=== PATIENT | male | born 1955 | race Caucasian/White ===

== ENCOUNTER → 2020-01-25 09:05 | Outpatient (BNVA) | payer OTHER, SELFPAY | PROVIDERS: PCP Internal Medicine; Visit Provider Internal Medicine Cardiovascular Disease | DX: Z76.89 Persons encountering health services in other specified circumstances (principal) ==

== ENCOUNTER → 2020-01-25 | Outpatient (REF) | payer OTHER, SELFPAY ==
--- NOTE | 2020-01-25 | ECG_ITS ---
Hook-up date: 2020-01-25 09:26:00 Duration: 24:34:00 Test Indications: PVC'S, SVT Medications: 66528 QRS complexes 1039 Ventricular ectopics which represent 1 % of total QRS comp. 21 Supraventricular ectopics which represent <1 % of total QRS comp. * Paced QRS complexs which represent % of total QRS comp. VENTRICULAR ECTOPY 1031 Isolated 34 Bigeminal Cycles 4 Couplets 0 Runs 0 Beats in Runs * Beats LONGEST at * BPM at :: -- * Beats FASTEST at * BPM at :: -- SUPRAVENTRICULAR ECTOPY 16 Isolated 0 Couplets 1 Runs 5 Beats in Runs 5 Beats LONGEST at 136 BPM at 18:03:53 2020-01-25 5 Beats FASTEST at 136 BPM at 18:03:53 2020-01-25 HEART RATES 46 MIN at 01:51:28 2020-01-26 67 AVG 94 MAX at 05:45:33 2020-01-26 LONGEST RR 1.3120 secs at 01:51:35 2020-01-26 S-T LEVELS Channel 1 - 128 mm at 09:26:00 2020-01-25 - 128 mm at 09:26:00 2020-01-25 Channel 2 - 128 mm at 09:26:00 2020-01-25 - 128 mm at 09:26:00 2020-01-25 Channel 3 - 128 mm at 02:84:51 -- - 128 mm at 02:84:51 Underlying rhythm is sinus; Average ventricular rate 67/min; range 46-94/min; Occasional ventricular ectopy- about 1000 over 24 Hrs (1%); Couplets and bigeminy noted but no sustained episodes; Rare supraventricular ectopy. Patient diary not available for review. Referred By: Ron Cortés Overread By: CRISTIAN ARMAS
== END ==
LOC: HO.CARD
PROVIDERS: Visit Provider Internal Medicine Cardiovascular Disease
DX: I49.3 Ventricular premature depolarization (principal); I47.1 Supraventricular tachycardia
CPT/HCPCS: 93226

== ENCOUNTER 2020-02-25 06:19 | Outpatient (REF) | payer OTHER, SELFPAY ==
[2020-02-25 07:21] LABS: MANUAL DIFF FLAG NO
[2020-02-25 07:32] LABS: Basophils Absolute Auto 0.1 X10*3/uL (0.0-0.2); Eosinophils Absolute Auto 0.2 X10*3/uL (0.0-0.4); Eosinophils Percent Auto 3.5 % (0-4); Hematocrit 46.8 % (42-52); Hemoglobin 15.5 g/dl (14.0-18.0); Imm Gran Abs Auto 0.03 X10*3/uL (0.00-0.03); Imm Gran Pct Auto 0.6 % (0.0-0.4); Lymphocytes Absolute Auto 1.7 X10*3/uL (1.2-4.9); Mean Corpuscular HGB Conc 33.1 g/dl (31.0-36.0); Mean Corpuscular Hemoglobin 32.6 pg (27.0-33.0); Mean Corpuscular Volume 98.3 fL (80-98); Monocytes Absolute Auto 0.4 X10*3/uL (0.1-1.2); Monocytes Percent Auto 8.3 % (2-11); Neutrophils Absolute Auto 2.5 X10*3/uL (2.0-8.3); Neutrophils Percent Auto 51.6 % (45-73); Platelet Count 217 X10*3/uL (160-400); Red Blood Count 4.76 X10*6/uL (4.60-5.80); Red Cell Distribution Width 12.8 % (11.0-16.0); White Blood Count 4.8 X10*3/uL (4.8-10.8)
[2020-02-25 07:50] LABS: Alanine Aminotransferase 25 U/L (0-40); Albumin Level 4.4 g/dL (3.5-5.0); Alkaline Phosphatase 48 U/L (39-117); Anion Gap 14 (12-20); Aspartate Amino Transferase 21 U/L (5-37); Bilirubin Total 0.5 mg/dL (0.0-1.0); Blood Urea Nitrogen 15 mg/dL (9-16); Calcium 9.1 mg/dL (8.4-10.2); Carbon Dioxide 27 mmol/L (22-29); Chloride 105 mmol/L (96-108); Cholesterol 202 mg/dL; Estimated Glomerular Filt Rate 59; Glucose Fasting 99 mg/dL (60-99); HDL Cholesterol 39 mg/dL; LDL Cholesterol Calculated 117 mg/dl; Potassium 4.6 mmol/l (3.3-5.1); Sodium 141 mmol/L (135-145); Total Protein 7.6 g/dL (6.5-8.0); Triglycerides 234 mg/dL
[2020-02-25 08:13] LABS: Thyroid Stimulating Hormone 3.13 mIU/mL (0.32-4.0)
[2020-02-25 08:33] LABS: T4 Thyroxine 5.8 ug/dL (4.5-12.0)
[2020-02-25 08:43] LABS: Folate > 20.0 ng/mL (> or = 4.0); Vitamin B12 759 pg/mL (200-900)
== END 2020-02-25 06:20 | disposition home or self-care (01) ==
LOC: HO.LAB 06:19
PROVIDERS: Visit Provider Internal Medicine
DX: E78.00 Pure hypercholesterolemia, unspecified (principal); I34.0 Nonrheumatic mitral (valve) insufficiency; Z00.00 Encounter for general adult medical examination without abnormal findings
CPT/HCPCS: 36415; 80053; 80061; 82607; 82746; 84436; 84443; 85025

== ENCOUNTER 2020-03-11 13:46 | Outpatient (REF) | payer OTHER, SELFPAY ==
--- NOTE | 2020-03-11 13:53 | XR_ITS ---
EXAMINATION: XR FOOT, LEFT CLINICAL INFORMATION: Left foot pain. COMPARISON: Left heel radiographs dated 08/03/2014 and the left ankle radiographs dated 07/11/2015. TECHNIQUE: AP, lateral, and oblique views of the left foot. FINDINGS: There is no acute fracture or dislocation. The tarsal bones are normally aligned. Small plantar and retrocalcaneal spurs are seen. Small calcification is seen in the region of the plantar fascia in the proximal one third. XR/XR foot LT min 3V IMPRESSION: Small degenerative calcaneal spurs have not significantly changed 2016. Mild plantar fascia calcification proximally is likely degenerative in nature, but was not seen on the 2016 study.
== END 2020-03-11 13:47 | disposition home or self-care (01) ==
LOC: HO.XRAY 13:46
PROVIDERS: PCP Internal Medicine; Visit Provider Internal Medicine
DX: M79.672 Pain in left foot (principal)
CPT/HCPCS: 73630

== ENCOUNTER 2020-06-16 07:59 | Outpatient (REF) | payer OTHER, SELFPAY ==
--- NOTE | ~2020-06-16 | MR_ITS ---
MR CERVICAL SPINE WITHOUT CONTRAST CLINICAL INFORMATION: Neuralgia and neuritis. COMPARISON: None available. TECHNIQUE: MRI of the cervical spine was obtained using routine sequences without contrast. FINDINGS: Cervical alignment is normal. The vertebral body heights are maintained. Moderate disc volume loss at C5-C6 and C6-C7. Modic type I endplate signal changes at C5-C6. There is marrow edema within the right C3 and C4 facets that is most likely degenerative or inflammatory. Craniocervical junction is unremarkable. Partially imaged posterior fossa is unremarkable. Cervical arterial flow voids are maintained. There are no significant soft tissue findings. C2-C3: Disc contour is normal. No central canal stenosis and no foraminal stenosis. C3-C4: Uncovertebral joint spurring and facet arthropathy result in moderate right and mild left foraminal stenosis. No central canal stenosis. C4-C5: Disc osteophyte mildly narrows the central canal. Uncovertebral joint hypertrophy and hypertrophic facet arthropathy result in severe left and moderate right foraminal stenosis. C5-C6: Disc osteophyte mildly narrows the central canal. Uncovertebral joint hypertrophy and hypertrophic facet arthropathy result in severe left and moderate right foraminal stenosis. C6-C7: Disc osteophyte mildly narrows the central canal. Uncovertebral joint hypertrophy and hypertrophic facet arthropathy result in severe left and moderate right foraminal stenosis. C7-T1: There is a soft left foraminal disc protrusion that results in severe left-sided foraminal stenosis and compression of the exiting left C8 nerve root. No central canal stenosis. Uncovertebral joint spurring results in mild right-sided foraminal encroachment. MR/MR cervical spine wo con IMPRESSION: - At C7-T1, there is a soft left foraminal disc protrusion that results in severe left-sided foraminal stenosis and compression of the exiting left C8 nerve root. - Additional advanced spondylitic changes throughout the cervical spine resulting in varying degrees of moderate to severe foraminal stenosis as discussed in detail above. No severe central canal stenosis within the cervical spine. - Modic type I endplate signal changes at C5-C6. There is marrow edema within the right C3 and C4 facets that is most likely degenerative or inflammatory.
== END 2020-06-16 08:00 | disposition home or self-care (01) ==
LOC: HO.MRI 07:59
PROVIDERS: Visit Provider Internal Medicine
DX: M79.2 Neuralgia and neuritis, unspecified (principal)
CPT/HCPCS: 72141

== ENCOUNTER → 2020-07-11 11:21 | Outpatient (BNVA) | payer OTHER, SELFPAY | PROVIDERS: PCP Internal Medicine; Visit Provider Internal Medicine Cardiovascular Disease ==

== ENCOUNTER 2020-08-01 06:15 | Day surgery (SDC) | payer OTHER, SELFPAY ==
[2020-07-27 10:56] VITALS: BMI 28.2
--- NOTE | 2020-07-28 08:15 | MHC.SHP ---
Pre-Procedural Eval Section A The patient is an INPATIENT: No The History & Physical has been completed within 30 days and I have reviewed it.: Yes Section B Chief Complaint: Cataract Left Eye Allergies: Allergies Allergy/AdvReac Type Severity Reaction Status Date / Time No Known Allergies Allergy Verified 07/27/20 10:56 [No Known Allergies*] Plan Diagnosis/Plan: Unchanged I have reviewed the history and physical and performed a pertinent physical examination on my patient. No changes have occurred unless specified.
--- NOTE | 2020-07-29 09:04 | P.CONAN_ITS ---
Documented by User: Zunilda Arteaga 07/29/20 09:07 HPI - Anesthesia Eval Consult details Narrative: 65yo M for Left Cataract Extraction IOL Insertion No prev cataract on record Daily ETOH PMFSH Active Problems Active Problems: All Active Problems (Updated 07/27/20 @ 11:02 by Nandini Jameson) Annual physical exam (Acute) Foot pain, left (Acute) Radicular pain in left arm (Acute) Ulnar neuropathy at elbow of left upper extremity (Acute) PVCs (premature ventricular contractions) (Acute) Cataract extraction status, unspecified eye (Acute) Preoperative clearance (Acute) Mitral valve prolapse (Acute) Vitamin D deficiency (Acute) Hypercholesterolemia (Acute) Past Medical History Medical History Arthritis Back pain Cataract Diverticulosis Hemorrhoids Hypercholesterolemia Lumbar disc 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 Mitral valve prolapse PVCs (premature ventricular contractions) Ulnar neuropathy Vitamin D deficiency Family History Family History Father Hypertension Abdominal aneurysm Mother Lymphoma Maternal Aunt Lymphoma Brother CAD (coronary artery disease) Myocardial infarction Family/Other Hypercholesterolemia History of high blood pressure CAD (coronary artery disease) Surgical History Surgical History History of inguinal hernia repair History of vasectomy Hx of colonoscopy Social History Social History Are you a primary critical care registered nurse to a significant other at home: No Do you presently have visiting nurse or other home services: No Alcohol intake: current Alcohol intake frequency: 0-2 drinks per day Smoking Status: Former smoker Years Smoked: stopped 1995 Smoking Quit Date: 1995 Patient Interested in Nicotine Replacement: No Patient Given Instructions on How to Stop Smoking: No Second Hand Smoke Exposure: No Use of substances other than those prescribed or required for medical reasons: No Have you been hit, kicked, punched, or otherwise hurt by someone within the past year? If so, by whom?: No Advance Directives: No Advance Directives Information Provided: No Advance Directives on File: No Recently lost weight without trying: No Meds Allergies Allergy/AdvReac Type Severity Reaction Status Date / Time No Known Allergies Allergy Verified 07/27/20 10:56 [No Known Allergies*] Home Medications Medication Instructions Recorded Confirmed Last Taken Type cholecalciferol (vitamin D3) 25 25 mcg PO DAILY 03/07/20 07/27/20 Unknown History mcg (1,000 unit) capsule cyanocobalamin (vitamin B-12) 1,000 mcg PO DAILY 03/07/20 07/27/20 Unknown History 1,000 mcg capsule diphenhydramine HCl 25 mg capsule 25 mg PO BEDTIME 03/07/20 07/27/20 Unknown History folic acid 800 mcg tablet 0.8 mg PO DAILY 03/07/20 07/27/20 Unknown History Exam Exam Date and Time: July 29, 2020903 Height,Weight and Vital Signs: Height 6 ft 2 in Weight 99.79 kg Assessment and Plan Assessment Anesthesia Assessment: Chart Reviewed Documented by User: Linda Weber 08/01/20 07:12 [facility] Past Medical History Medical History Arthritis Back pain Cataract Diverticulosis Hemorrhoids Hypercholesterolemia Lumbar disc 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 Mitral valve prolapse PVCs (premature ventricular contractions) Ulnar neuropathy Vitamin D deficiency Family History Family History Father Hypertension Abdominal aneurysm Mother Lymphoma Maternal Aunt Lymphoma Brother CAD (coronary artery disease) Myocardial infarction Family/Other Hypercholesterolemia History of high blood pressure CAD (coronary artery disease) Family history of problems with anesthesia: No Surgical History Surgical History History of inguinal hernia repair History of vasectomy Hx of colonoscopy History of Problems with Anesthesia: No Social History Social History Are you a primary critical care registered nurse to a significant other at home: No Do you presently have visiting nurse or other home services: No Alcohol intake: current Alcohol intake frequency: 0-2 drinks per day Smoking Status: Former smoker Years Smoked: stopped 1995 Smoking Quit Date: 1995 Patient Interested in Nicotine Replacement: No Patient Given Instructions on How to Stop Smoking: No Second Hand Smoke Exposure: No Use of substances other than those prescribed or required for medical reasons: No Have you been hit, kicked, punched, or otherwise hurt by someone within the past year? If so, by whom?: No Advance Directives: No Advance Directives Information Provided: No Advance Directives on File: No Recently lost weight without trying: No Meds Allergies Allergy/AdvReac Type Severity Reaction Status Date / Time No Known Allergies Allergy Verified 07/27/20 10:56 [No Known Allergies*] Home Medications Medication Instructions Recorded Confirmed Last Taken Type cholecalciferol (vitamin D3) 25 25 mcg PO DAILY 03/07/20 07/27/20 Unknown History mcg (1,000 unit) capsule cyanocobalamin (vitamin B-12) 1,000 mcg PO DAILY 03/07/20 07/27/20 Unknown History 1,000 mcg capsule diphenhydramine HCl 25 mg capsule 25 mg PO BEDTIME 03/07/20 07/27/20 Unknown History folic acid 800 mcg tablet 0.8 mg PO DAILY 03/07/20 07/27/20 Unknown History Exam Height,Weight and Vital Signs: Vital Signs Temp Pulse Resp BP Pulse Ox 08/01/20 06:34 96.6 F L 70 16 132/84 99 Airway Mallampati Class: III TM Dist: >3cm Neck ROM: Full Loose/Missing/Broken Teeth: No Heart: RRR Lungs: CTAB Assessment and Plan Assessment Anesthesia Assessment: Anesthesia Plan Discussed and Chart Reviewed Final Anesthetic Review NPO: Yes ASA Class: III Final Preanesthetic Review: No Changes in Pt Med Stat, Meds/Allgs Chart Reviewed, Consent Obtained/Reviewed and Anes Risks/Benef Reviewed Patient Risk: Intermediate Procedure Risk: Low Assessment/Block/Sedation in SS: Assess/Block/Sedation-SS Anesthetic Plan Anesthetic Plan: MAC:
[2020-08-01 06:34] VITALS: BP 132/84; PULSE 70; RESP 16; TEMP 35.9; O2SAT 99
--- NOTE | 2020-08-01 07:57 | HO.PNOPHT ---
Ophthalmology Procedure Procedure Date of Service: 08/01/20 Ophthalmology Viscoelastic: Healon Duet Dual Pack Pro Ophthalmology Lenses: TECNIS [id number] (20.5) Procedure Notes: PREOPERATIVE DIAGNOSIS: Decreased visual acuity left eye secondary to cataract POSTOPERATIVE DIAGNOSIS: Same PROCEDURE: Left cataract extraction with intraocular lens insertion SURGEON: Toribio Doss M.D. ANESTHESIA: Topical/MAC ESTIMATED BLOOD LOSS: None COMPLICATIONS: None After obtaining informed consent, the patient was brought to the operation room suite and placed in the supine position. After adequate sedation per anesthesia, topical drops of Tetracaine were given to the left eye. The eye was then prepped and draped in the usual sterile fashion. The operating room microscope was then positioned over the operative eye and a lid speculum placed. A paracentesis was created. Viscoelastic was then instilled into the anterior chamber. A three plane incision was then created temporally, utilizing a 2.85 mm keratome. Capsulotomy forceps were then utilized to create a circular tear capsulotomy. Hydrodissection and hydrodelineation were carried out until adequate mobilization of the nucleus occurred. Phacoemulsification was then utilized to remove the dense central nucleus followed by removal of the cortical material utilizing the automated aspiration irrigation unit. Viscoat elastic was instilled into the posterior capsular bag followed by placement of a posterior chamber intraocular lens without difficulty. The residual Viscoat elastic was then removed utilizing the automated IA machine. The wound was check and found to be watertight. The patient tolerated the procedure well and the lid speculum was removed. Intracameral injection of Vigamox 0.1 mL followed by a subtenon injection of Kenalog-40 0.2 mL were administered. The patient will be seen in the a.m.
[2020-08-01 08:16] VITALS: BP 122/69; PULSE 77; RESP 15; TEMP 36.7; O2SAT 96
== END 2020-08-01 08:45 | disposition home or self-care (01) ==
PROVIDERS: PCP Internal Medicine; Visit Provider Ophthalmology
PROC: (CPT 66985; principal; 2020-08-01 08:00)
DX: H25.12 Age-related nuclear cataract, left eye (principal)
CPT/HCPCS: 66984; J2250; J3300; V2632

== ENCOUNTER → 2020-08-19 08:27 | Outpatient (REF) | payer OTHER, SELFPAY ==
--- NOTE | 2020-08-19 08:31 | CA_ITS ---
Transthoracic Echocardiogram Patient (Last, First, Middle): French Sanabria M Gender: Male Date of : 1955 Age: 65 Procedure Date: 08/19/2020 Procedure Type: Transthoracic Echocardiogram Location: OP Height: 185.42 cm Weight: 99.79 kg BSA: 2.24 m2 Heart Rate: bpm BP: 128 / 62 mmHg Contact Center Analyst: Delfino MD: Ron Cortés MD [place]: Ron Cortés MD Symptoms: I34.1 - Nonrheumatic mitral (valve) prolapse Study Quality: Fair ECG Rhythm: Sinus Conclusions: - 1. Normal LV systolic and diastolic function 2. 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 Normal RV systolic pressure 4. No pericardial effusion Findings Left Ventricle Normal left ventricular size, thickness, and systolic function. The visually estimated ejection fraction is between 55-60%. Diastolic function is normal for age. Right Ventricle Normal right ventricular cavity size and systolic function. Atria The left atrium is likely dilated. There is no evidence of interatrial shunt. The right atrium is normal in size. Aortic Valve Normal aortic valve structure and function. There is no aortic valve stenosis. There is no aortic valve regurgitation. Mitral Valve The mitral valve appears myxomatous. There is mild anterior and moderate posterior mitral leaflet thickening. There is mild posterior mitral leaflet prolapse. There is mild mitral valve regurgitation. The mitral regurgitation jet is directed anteriorly. There is no mitral valve stenosis. Pulmonic Valve The pulmonic valve was not well visualized. Tricuspid Valve Likely normal tricuspid valve structure and function. There is trace tricuspid valve regurgitation. The right ventricular systolic pressure is normal. The right ventricular systolic pressure is 32 mmHg. Normal right atrial pressure. There is no evidence of pulmonary hypertension. Great Vessels All visible segments of the aorta are normal in size. The pulmonary artery was not well visualized. Venous The inferior vena cava is normal in size and collapses greater than 50% with inspiration. Pericardium/Pleural There is no evidence of pericardial effusion. Prior Study Comparison Changes noted compared to prior study dated: 07/24/2019. Mitral regurgitation appears to be mild Measurements 2D Linear Measurements RVIDd: 3.29 RVIDd Index: 1.47 IVSd: 0.97 0.6-0.9/0.6-1.0 cm LVIDd: 4.83 3.9-5.3/4.2-5.9 cm LVIDd Index: 2.16 2.4-3.2/2.2-3.1 cm/m2 LVIDs: 3.32 2.0-3.6 cm LVPWd: 1.14 0.7-1.1 cm Ao Root: 3.40 2.1-3.5 cm LA Diam: 3.90 2.7-3.8/3.0-4.0 cm LAIDs Index: 1.74 1.5-2.3 cm/m2 LV Mass: 230.29 67-162/88-224 g LV Mass Index: 102.81 43-95/49-115 g/m2 LVOT Diam: 2.50 3.0+(-)1.3 cm 2D Systolic Function EF 4C: 52.90 >55% EF 2C: 59.70 >55% EF BiP: 57.50 >55% Mitral Valve MV Pk E: 0.79 MV PK A: 0.66 MV Decel Time: 216.00 E/A: 1.20 E'Lateral: 6.85 E'Medial: 6.31 E/E' Med: 12.50 E/E' Lat: 11.50 MR Vol - PW Dopp: 15.15 MR VTI: 1.01 MR ERO: 15.00 MR Alias Horace: 0.34 MR RAD: 0.50 Aortic Valve AoV Pk Horace: 1.05 AoV Mn Horace: 0.81 AoV VTI: 0.21 AoV Pk Grad: 4.00 Aov Mn Grad: 3.00 LUI Cont.VTI: 2.84 LVOT LVOT Pk Horace: 0.72 LVOT Mn Horace: 0.45 LVOT VTI: 0.12 LVOT Pk Grad: 2.00 LVOT Mn Grad: 1.00 LVOT Diam: 2.50 LVOT Area: 4.91 Diastolic Function MV Pk E: 0.79 MV Pk A: 0.66 E/A: 1.20 E'Medial: 6.31 E/E' Med: 12.50 E' Laterial: 6.85 E/E' Lat: 11.50 Tricuspid Valve TR Pk Horace: 2.43 TR Pk Grad: 24.00 RA Press: 8.00 RVSP: 32.00 Great Vessels Aorta Ao Root-2D: 3.40 2.0-3.7 cm Ao Asc: 3.50 2.1-3.4 cm Ao Arch: 2.90 Updated in Other Vendor System with Status of Final Ron Cortés MD electronically signed on 08/19/2020 2:48:20 PM with status of Final
--- NOTE | 2020-08-19 08:45 | ECG_ITS ---
Hook-up date: 2020-08-19 09:38:00 Duration: 47:59:00 Test Indications: PVC'S Medications: 991200 QRS complexes 5328 Ventricular ectopics which represent 5 % of total QRS comp. 12 Supraventricular ectopics which represent <1 % of total QRS comp. * Paced QRS complexs which represent % of total QRS comp. VENTRICULAR ECTOPY 5328 Isolated 80 Bigeminal Cycles 0 Couplets 0 Runs 0 Beats in Runs * Beats LONGEST at * BPM at :: -- * Beats FASTEST at * BPM at :: -- SUPRAVENTRICULAR ECTOPY 7 Isolated 1 Couplets 1 Runs 3 Beats in Runs 3 Beats LONGEST at 123 BPM at 22:59:04 2020-08-19 3 Beats FASTEST at 123 BPM at 22:59:04 2020-08-19 HEART RATES 48 MIN at 02:50:37 2020-08-20 72 AVG 103 MAX at 16:09:58 2020-08-19 LONGEST RR 1.0800 secs at 23:48:10 2020-08-19 S-T LEVELS Channel 1 - 128 mm at 09:38:00 2020-08-19 - 128 mm at 09:38:00 2020-08-19 Channel 2 - 128 mm at 09:38:00 2020-08-19 - 128 mm at 09:38:00 2020-08-19 Channel 3 - 128 mm at 02:85:71 -- - 128 mm at 02:85:71 Basic rhythm Normal sinus rhythm No long pause or profound bradycardia Frequent Premature ventricular complexes , 5% of total beats, unifocal Patient did not report any symptoms of palpitations Referred By: Ron Cortés Overread By: RON CORTÉS MD
== END ==
LOC: HO.CARD 08:27
PROVIDERS: Visit Provider Internal Medicine Cardiovascular Disease
DX: I49.3 Ventricular premature depolarization (principal); I34.1 Nonrheumatic mitral (valve) prolapse
CPT/HCPCS: 93225; 93226; 93306

== ENCOUNTER 2021-03-20 07:52 | Outpatient (REF) | payer BC, SELFPAY ==
[2021-03-20 11:36] LABS: MANUAL DIFF FLAG NO
[2021-03-20 11:51] LABS: Basophils Percent Auto 0.7 % (0-2); Eosinophils Absolute Auto 0.2 X10*3/uL (0.0-0.4); Eosinophils Percent Auto 2.8 % (0-4); Hematocrit 45.8 % (42.0-52.0); Hemoglobin 15.3 g/dl (14.0-18.0); Imm Gran Abs Auto 0.01 X10*3/uL (0.00-0.03); Imm Gran Pct Auto 0.2 % (0.0-0.4); Lymphocytes Absolute Auto 2.3 X10*3/uL (1.2-4.9); Lymphocytes Percent Auto 41.4 % (20-40); Mean Corpuscular HGB Conc 33.4 g/dl (31.0-36.0); Mean Corpuscular Hemoglobin 32.6 pg (27.0-33.0); Mean Corpuscular Volume 97.7 fL (80.0-98.0); Mean Platelet Volume 10.6 fL (9.4-12.4); Monocytes Absolute Auto 0.5 X10*3/uL (0.1-1.2); Monocytes Percent Auto 8.6 % (2-11); Neutrophils Absolute Auto 2.5 x10*3/uL (2.0-8.3); Neutrophils Percent Auto 46.3 % (45-73); Platelet Count 222 X10*3/uL (160-400); Red Blood Count 4.69 X10*6/uL (4.60-5.80); Red Cell Distribution Width 12.9 % (11.0-16.0); White Blood Count 5.4 X10*3/uL (4.8-10.8)
[2021-03-20 12:03] LABS: Alanine Aminotransferase 26 U/L (0-40); Albumin Level 4.4 g/dL (3.5-5.0); Alkaline Phosphatase 51 U/L (39-117); Anion Gap 13 (12-20); Aspartate Amino Transferase 22 U/L (5-37); Bilirubin Total 0.6 mg/dL (0.0-1.0); Blood Urea Nitrogen 15 mg/dL (9-16); Calcium 9.7 mg/dL (8.4-10.2); Carbon Dioxide 27 mmol/L (22-29); Chloride 105 mmol/L (96-108); Cholesterol 187 mg/dL; Estimated Glomerular Filt Rate > 60; Glucose Random 105 mg/dL (60-115); HDL Cholesterol 35 mg/dL; LDL Cholesterol Calculated 111 mg/dl; Potassium 4.8 mmol/L (3.3-5.1); Sodium 140 mmol/L (135-145); Total Protein 7.7 g/dL (6.5-8.0); Triglycerides 206 mg/dL
[2021-03-20 12:30] LABS: Free T4 (Free Thyroxine) 0.95 ng/dL (0.71-1.85); Prostate Specific Antigen Scr 0.85 ng/mL (<0.05-4.0); Thyroid Stimulating Hormone 2.61 uIU/mL (0.32-4.0)
[2021-03-20 13:06] LABS: Folate > 20.0 ng/mL (> or = 4.0); Vitamin B12 555 pg/mL (200-900)
== END 2021-03-20 07:53 | disposition home or self-care (01) ==
LOC: HO.WFDLDS 07:52
PROVIDERS: Visit Provider Internal Medicine
DX: Z12.5 Encounter for screening for malignant neoplasm of prostate (principal); E78.00 Pure hypercholesterolemia, unspecified
CPT/HCPCS: 36415; 80053; 80061; 82607; 82746; 84153; 84439; 84443; 85025

== ENCOUNTER → 2021-07-11 10:51 | Outpatient (BNVA) | payer BC, SELFPAY | PROVIDERS: PCP Internal Medicine; Referring Provider Internal Medicine; Visit Provider Internal Medicine Cardiovascular Disease | DX: I49.3 Ventricular premature depolarization (principal); I34.1 Nonrheumatic mitral (valve) prolapse | CPT/HCPCS: 93005 ==

== ENCOUNTER 2021-07-31 06:42 | Day surgery (SDC) | payer BC, SELFPAY ==
[2021-07-24 09:29] VITALS: BMI 29.0
--- NOTE | 2021-07-27 11:36 | MHC.SHP ---
Pre-Procedural Eval Section A Date of Service: 07/27/21 The patient is an INPATIENT: No Changes since office visit: No Cold of Flu in the past 2 weeks, No New Medical Problems, No Changes in Medication and No Patient answered all questions The History & Physical has been completed within 30 days and I have reviewed it.: Yes Section B Chief Complaint: cataract Allergies: Allergies Allergy/AdvReac Type Severity Reaction Status Date / Time No Known Allergies Allergy Verified 07/18/21 10:07 [No Known Allergies*] Plan Diagnosis/Plan: Unchanged I have reviewed the history and physical and performed a pertinent physical examination on my patient. No changes have occurred unless specified.
--- NOTE | 2021-07-27 15:08 | P.CONAN_ITS ---
Documented by User: Zunilda Arteaga NP 07/27/21 15:09 HPI - Anesthesia Eval Consult details Narrative: 66yo M for Right Cataract Extraction IOL Insertion PCP cleared Left eye 07/2020 with TIVA: Midaz 2 PMFSH Active Problems Active Problems: All Active Problems (Updated 07/24/21 @ 09:32 by Myriam Gupta RN) Annual physical exam (Acute) Foot pain, left (Acute) Radicular pain in left arm (Acute) Ulnar neuropathy at elbow of left upper extremity (Acute) PVCs (premature ventricular contractions) (Acute) Preoperative clearance (Acute) Otitis media of left ear with spontaneous rupture of tympanic membrane (Acute) Annual physical exam (Acute) Orthostatic dizziness (Acute) Motion sickness (Acute) Cataract (Acute) Mitral valve prolapse (Acute) Vitamin D deficiency (Acute) Hypercholesterolemia (Acute) Past Medical History Medical History (Updated 07/24/21 @ 09:32 by Myriam Gupta RN) Arthritis Back pain Cataract COVID-19 vaccine series completed Diverticulosis Hemorrhoids Hypercholesterolemia Lumbar disc 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 Mitral valve prolapse PVCs (premature ventricular contractions) Ulnar neuropathy Vitamin D deficiency Family History Family History Father Hypertension Abdominal aneurysm Mother Lymphoma Maternal Aunt Lymphoma Brother CAD (coronary artery disease) Myocardial infarction Family/Other Hypercholesterolemia History of high blood pressure CAD (coronary artery disease) Family history of problems with anesthesia: No Surgical History Surgical History (Updated 07/24/21 @ 09:22 by Myriam Gupta RN) Cataract extraction status, unspecified eye History of inguinal hernia repair History of vasectomy Hx of colonoscopy History of Problems with Anesthesia: No Social History Social History Housing: House Are you a primary pediatric care coordinator to a significant other at home: No Do you presently have visiting nurse or other home services: No Alcohol intake: current Alcohol intake frequency: 0-2 drinks per day Patient Tobacco Use Status: Former Tobacco user Quit Date: 1995 Tobacco use type: Cigarette Years Smoked: stopped 1995 e-Cigarette/Vaping Use: Never Used Second Hand Smoke Exposure: No Use of substances other than those prescribed or required for medical reasons: No Are you DNR?: No Advance Directives: No Advance Directives Information Provided: Yes Advance Directives on File: No Recently lost weight without trying: No Eating poorly because of decreased appetite: No Nutrition Risks: No Nutritional Risk service: No Current occupational status: retired Cognitive needs: No Hearing needs: No Vision needs: No Meds Allergies Allergy/AdvReac Type Severity Reaction Status Date / Time No Known Allergies Allergy Verified 07/18/21 10:07 [No Known Allergies*] Home Medications Medication Instructions Recorded Confirmed Last Taken Type cholecalciferol (vitamin D3) 25 25 mcg PO DAILY 03/07/20 07/24/21 Unknown History mcg (1,000 unit) capsule cyanocobalamin (vitamin B-12) 1,000 mcg PO DAILY 03/07/20 07/24/21 Unknown History 1,000 mcg capsule diphenhydramine HCl 25 mg capsule 25 mg PO BEDTIME 03/07/20 07/24/21 Unknown History (NightTime Sleep Aid (diphenhydramine)) folic acid 800 mcg tablet 0.8 mg PO DAILY 03/07/20 07/24/21 Unknown History aspirin 81 mg tablet,delayed 81 mg PO DAILY 03/09/21 07/24/21 Unknown History release (Adult Low Dose Aspirin) Exam Exam Date and Time: July 27, 2021 1508 Height,Weight and Vital Signs: Height 6 ft 2 in Weight 102.512 kg Narrative Narrative: ECHO 07/2020 Conclusions: - 1. Normal LV systolic and diastolic function ? 2. 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 3. Normal RV systolic pressure ? 4. No pericardial effusion ? 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 Mitral valve prolapse PVCs (premature ventricular contractions) Ulnar neuropathy Vitamin D deficiency Family History Family History Father Hypertension Abdominal aneurysm Mother Lymphoma Maternal Aunt Lymphoma Brother CAD (coronary artery disease) Myocardial infarction Family/Other Hypercholesterolemia History of high blood pressure CAD (coronary artery disease) Surgical History Surgical History (Updated 07/24/21 @ 09:22 by Myriam Gupta RN) Cataract extraction status, unspecified eye History of inguinal hernia repair History of vasectomy Hx of colonoscopy Social History Social History Housing: House Are you a primary pediatric care coordinator to a significant other at home: No Do you presently have visiting nurse or other home services: No Alcohol intake: current Alcohol intake frequency: 0-2 drinks per day Patient Tobacco Use Status: Former Tobacco user Quit Date: 1995 Tobacco use type: Cigarette Years Smoked: stopped 1995 e-Cigarette/Vaping Use: Never Used Second Hand Smoke Exposure: No Use of substances other than those prescribed or required for medical reasons: No Are you DNR?: No Advance Directives: No Advance Directives Information Provided: Yes Advance Directives on File: No Recently lost weight without trying: No Eating poorly because of decreased appetite: No Nutrition Risks: No Nutritional Risk service: No Current occupational status: retired Cognitive needs: No Hearing needs: No Vision needs: No Meds Allergies Allergy/AdvReac Type Severity Reaction Status Date / Time No Known Allergies Allergy Verified 07/18/21 10:07 [No Known Allergies*] Home Medications Medication Instructions Recorded Confirmed Last Taken Type cholecalciferol (vitamin D3) 25 25 mcg PO DAILY 03/07/20 07/24/21 Unknown History mcg (1,000 unit) capsule cyanocobalamin (vitamin B-12) 1,000 mcg PO DAILY 03/07/20 07/24/21 Unknown History 1,000 mcg capsule diphenhydramine HCl 25 mg capsule 25 mg PO BEDTIME 11/16/20 04/04/22 Unknown History (NightTime Sleep Aid (diphenhydramine)) folic acid 800 mcg tablet 0.8 mg PO DAILY 03/07/20 07/24/21 Unknown History aspirin 81 mg tablet,delayed 81 mg PO DAILY 03/09/21 07/24/21 Unknown History release (Adult Low Dose Aspirin) Exam Airway Mallampati Class: III TM Dist: >3cm Neck ROM: Full Loose/Missing/Broken Teeth: Yes (chipprd front teeth upper and lower) Heart: rrr+[id number] Lungs: cta b/l Assessment and Plan Assessment Anesthesia Assessment: Anesthesia Plan Discussed Final Anesthetic Review NPO: Yes ASA Class: III Final Preanesthetic Review: Meds/Allgs Chart Reviewed, Consent Obtained/Reviewed and Anes Risks/Benef Reviewed Patient Risk: Intermediate Procedure Risk: Low Assessment/Block/Sedation in SS: Assess/Block/Sedation-SS Anesthetic Plan Anesthetic Plan: MAC: and Agree w/ Assess. and Plan Disposition: Standard PACU
[2021-07-31 06:58] VITALS: BP 129/83; PULSE 82; RESP 16; TEMP 36.2; O2SAT 99
[2021-07-31] MEDS: Tetracaine HCl/PF 0.5% Oph Sol 4 ML DROPS 1 DROP EYE-RIGHT (06:59)
[2021-07-31] MEDS: Tropicamide 1 % Ophth Sol 3 ML BTL 1 DROP EYE-RIGHT ×3 (07:04→07:17)
[2021-07-31] MEDS: Lactated Ringers 500 ML 50 ML IV (07:05)
[2021-07-31] MEDS: Phenylephrine HCL 2.5% Oph SoL 2 ML BOTTLE 1 DROP EYE-RIGHT ×3 (07:07→07:19)
--- NOTE | 2021-07-31 08:13 | HO.PNOPHT ---
Ophthalmology Procedure Procedure Date of Service: 07/31/21 Ophthalmology Viscoelastic: Healguillaume Duet Dual Pack Pro Ophthalmology Lenses: TECNIS [id number] (21.5) Procedure Notes: PREOPERATIVE DIAGNOSIS: Decreased visual acuity right eye secondary to cataract POSTOPERATIVE DIAGNOSIS: Same PROCEDURE: Right cataract extraction with intraocular lens insertion SURGEON: Toribio Doss M.D. ANESTHESIA: Topical/MAC ESTIMATED BLOOD LOSS: None COMPLICATIONS: None After obtaining informed consent, the patient was brought to the operating room suite and placed in the supine position. After adequate sedation per anesthesia, topical drops of Tetracaine were given to the right eye. The eye was then prepped and draped in the usual sterile fashion. The operating room microscope was then positioned over the operative eye and a lid speculum placed. A paracentesis was created. Viscoelastic was then instilled into the anterior chamber. A three plane incision was then created temporally, utilizing a 2.85 mm keratome. Capsulotomy forceps were then utilized to create a circular tear capsulotomy. Hydrodissection and hydrodelineation were carried out until adequate mobilization of the nucleus occurred. Phacoemulsification was then utilized to remove the dense central nucleus followed by removal of the cortical material utilizing the automated aspiration irrigation unit. Viscoelastic was instilled into the posterior capsular bag followed by placement of a posterior chamber intraocular lens without difficulty. The residual Viscoelastic was then removed utilizing the automated IA machine. The wound was checked and found to be watertight. The patient tolerated the procedure well and the lid speculum was removed. Intracameral injection of Vigamox 0.1 mL followed by a subtenon injection of Kenalog-40 0.2 mL were administered. The patient will be seen in the a.m.
[2021-07-31 08:36] VITALS: BP 125/78; PULSE 77; RESP 17; TEMP 36.4; O2SAT 99
== END 2021-07-31 08:47 | disposition home or self-care (01) ==
PROVIDERS: PCP Internal Medicine; Visit Provider Ophthalmology
PROC: (CPT 66985; principal; 2021-07-31 08:20)
DX: H25.11 Age-related nuclear cataract, right eye (principal); I34.0 Nonrheumatic mitral (valve) insufficiency; I34.1 Nonrheumatic mitral (valve) prolapse; I49.3 Ventricular premature depolarization; E78.00 Pure hypercholesterolemia, unspecified; Z79.82 Long term (current) use of aspirin; Z79.899 Other long term (current) drug therapy
CPT/HCPCS: 66984; J2250; J3010; J3300; V2632

== ENCOUNTER 2022-04-10 13:45 | Outpatient (REF) | payer MEDICARE, BC, SELFPAY | END 2022-04-10 13:46 | disposition home or self-care (01) | LOC: HO.RESP 13:45 | PROVIDERS: PCP Internal Medicine; Visit Provider Internal Medicine | DX: R06.02 Shortness of breath (principal) | CPT/HCPCS: 94060; 94727; 94729 ==

== ENCOUNTER 2022-04-12 10:07 | Outpatient (REF) | payer MEDICARE, BC, SELFPAY ==
--- NOTE | ~2022-04-12 | XR_ITS ---
EXAMINATION: XR CHEST CLINICAL INFORMATION: Shortness of breath COMPARISON: None TECHNIQUE: 2 views of the chest were obtained. FINDINGS: The cardiac and mediastinal contours are unremarkable. There is a 1 cm density seen on the lateral view projecting over the posterior inferior T7 vertebral body. This may be related to overlapping bone/osteophyte. The lungs are otherwise clear. There is no pleural effusion or pneumothorax. There are degenerative changes of the spine. XR/XR chest 2V IMPRESSION: 1 cm density seen on the lateral view projecting over the T7 vertebral body, question related to bony osteophyte. Otherwise unremarkable exam.
== END 2022-04-12 10:08 | disposition home or self-care (01) ==
LOC: HO.XRAY 10:07
PROVIDERS: PCP Internal Medicine; Visit Provider Internal Medicine
DX: R06.02 Shortness of breath (principal)
CPT/HCPCS: 71046

== ENCOUNTER → 2022-05-15 07:53 | Outpatient (REF) | payer MEDICARE, BC, SELFPAY ==
--- NOTE | 2022-05-15 08:00 | CA_ITS ---
Transthoracic Echocardiogram Patient (Last, First, Middle): French Sanabria M Gender: Male Date of : 1955 Age: 67 Procedure Date: 05/15/2022 Procedure Type: Transthoracic Echocardiogram Location: OP Height: 185.42 cm Weight: 103.42 kg BSA: 2.28 m2 Heart Rate: bpm BP: 122 / 75 mmHg Marketing Production Coordinator: BEULAH Referring MD: Ron Cortés MD Symptoms: I34.1 - Nonrheumatic mitral (valve) prolapse Study Quality: Fair ECG Rhythm: Sinus Conclusions: - The left ventricular systolic function is normal. The visually estimated ejection fraction is between 55-60%. - Mitral valve not well visualized but possible mild posterior leaflet prolapse. There is mild mitral valve regurgitation. Findings Left Ventricle Normal left ventricular cavity size. The left ventricular systolic function is normal. The visually estimated ejection fraction is between 55-60%. There is no evidence of regional wall motion abnormalities. There is mild global hypokinesis. There is mild septal asymmetric hypertrophy. LV peak GLS -14% (diminished). Right Ventricle Normal right ventricular cavity size and systolic function. Atria Both atria are normal in size. Aortic Valve There is a normal trileaflet aortic valve. There is no aortic valve stenosis. There is no aortic valve regurgitation. Mitral Valve There is mild mitral valve regurgitation. There is no mitral valve stenosis. Mitral valve not well visualized but possible mild posterior leaflet prolapse. Pulmonic Valve The pulmonic valve is likely normal. Tricuspid Valve There is trace tricuspid valve regurgitation. There is no evidence of pulmonary hypertension. Great Vessels The asc aorta is normal in size. Venous The inferior vena cava was not well visualized. The inferior vena cava is normal in size. Pericardium/Pleural There is no evidence of pericardial effusion. Prior Study Comparison No significant change compared to prior study dated: 08/19/2020. Measurements 2D Linear Measurements IVSd: 1.05 0.6-0.9/0.6-1.0 cm LVIDd: 4.72 3.9-5.3/4.2-5.9 cm LVIDd Index: 2.07 2.4-3.2/2.2-3.1 cm/m2 LVIDs: 2.84 2.0-3.6 cm LVPWd: 0.94 0.7-1.1 cm LA Diam: 3.20 2.7-3.8/3.0-4.0 cm LAIDs Index: 1.40 1.5-2.3 cm/m2 LV Mass: 204.13 67-162/88-224 g LV Mass Index: 89.53 43-95/49-115 g/m2 LVOT Diam: 2.30 3.0+(-)1.3 cm 2D Systolic Function EF 4C: 58.50 >55% EF 2C: 64.10 >55% EF BiP: 61.30 >55% Mitral Valve MV Pk E: 0.60 MV PK A: 0.70 MV Decel Time: 250.00 E/A: 0.90 E'Lateral: 6.09 E'Medial: 5.87 E/E' Med: 10.30 E/E' Lat: 9.90 PHT: 73.00 MVA PHT: 3.01 Decel [place]: 2.42 Aortic Valve AoV Pk Horace: 1.18 AoV Mn Horace: 0.78 AoV VTI: 0.24 AoV Pk Grad: 6.00 Aov Mn Grad: 3.00 LUI Cont.VTI: 3.31 LVOT LVOT Pk Horace: 1.05 LVOT Mn Horace: 0.61 LVOT VTI: 0.19 LVOT Pk Grad: 4.00 LVOT Mn Grad: 2.00 LVOT Diam: 2.30 LVOT Area: 4.15 Diastolic Function MV Pk E: 0.60 MV Pk A: 0.70 E/A: 0.90 E'Medial: 5.87 E/E' Med: 10.30 E' Laterial: 6.09 E/E' Lat: 9.90 Right Ventricle TAPSE (mm): 22.40 TVS' Horace: 11.70 Tricuspid Valve TR Pk Horace: 1.69 TR Pk Grad: 11.00 Great Vessels Aorta Sinus of Valsalva: 3.98 2.0-3.[address] [place]: 3.24 1.7-3.4 cm Ao Asc: 3.50 2.1-3.4 cm Updated in Other Vendor System with Status of Final Eugenio Olivarez MD electronically signed on 05/15/2022 12:44:38 PM with status of Final
== END ==
LOC: HO.CARD 07:53
PROVIDERS: Visit Provider Internal Medicine Cardiovascular Disease
DX: I34.1 Nonrheumatic mitral (valve) prolapse (principal)
CPT/HCPCS: 93306; 93356

== ENCOUNTER 2022-06-07 08:10 | Outpatient (REF) | payer MEDICARE, BC, SELFPAY ==
[2022-06-07 10:57] LABS: MANUAL DIFF FLAG NO
[2022-06-07 11:03] LABS: Basophils Percent Auto 0.9 % (0-2); Eosinophils Absolute Auto 0.2 X10*3/uL (0.0-0.4); Eosinophils Percent Auto 3.8 % (0-4); Hemoglobin 15.5 g/dl (14.0-18.0); Imm Gran Abs Auto 0.01 X10*3/uL (0.00-0.03); Imm Gran Pct Auto 0.2 % (0.0-0.4); Lymphocytes Absolute Auto 1.6 X10*3/uL (1.2-4.9); Lymphocytes Percent Auto 36.9 % (20-40); Mean Corpuscular HGB Conc 33.7 g/dl (31.0-36.0); Mean Corpuscular Volume 98.1 fL (80.0-98.0); Monocytes Absolute Auto 0.4 X10*3/uL (0.1-1.2); Monocytes Percent Auto 10.1 % (2-11); Neutrophils Percent Auto 48.1 % (45-73); Platelet Count 205 X10*3/uL (160-400); Red Blood Count 4.69 X10*6/uL (4.60-5.80); Red Cell Distribution Width 13.2 % (11.0-16.0); White Blood Count 4.3 X10*3/uL (4.8-10.8)
[2022-06-07 11:38] LABS: Alanine Aminotransferase 28 U/L (0-40); Albumin Level 4.3 g/dL (3.5-5.0); Alkaline Phosphatase 51 U/L (39-117); Anion Gap 13 (12-20); Aspartate Amino Transferase 21 U/L (5-37); Bilirubin Total 0.6 mg/dL (0.0-1.0); Blood Urea Nitrogen 14 mg/dL (9-16); Calcium 9.7 mg/dL (8.4-10.2); Carbon Dioxide 25 mmol/L (22-29); Chloride 107 mmol/L (96-108); Cholesterol 210 mg/dL; Estimated Glomerular Filt Rate > 60; Glucose Random 99 mg/dL (60-115); HDL Cholesterol 40 mg/dL; LDL Cholesterol Calculated 132 mg/dl; Potassium 4.4 mmol/L (3.3-5.1); Sodium 141 mmol/L (135-145); Total Protein 7.4 g/dL (6.5-8.0); Triglycerides 194 mg/dL
[2022-06-07 11:45] LABS: Estimated Average Glucose 105 mg/dL; Hemoglobin A1c % 5.3 %
[2022-06-07 12:11] LABS: Folate 18.9 ng/mL (> or = 4.0); Free T4 (Free Thyroxine) 0.84 ng/dL (0.71-1.85); Thyroid Stimulating Hormone 2.53 uIU/mL (0.32-4.0); Vitamin B12 750 pg/mL (200-900)
== END 2022-06-07 08:11 | disposition home or self-care (01) ==
LOC: HO.WFDLDS 08:10
PROVIDERS: Visit Provider Internal Medicine
DX: E78.00 Pure hypercholesterolemia, unspecified (principal); Z12.5 Encounter for screening for malignant neoplasm of prostate
CPT/HCPCS: 36415; 80053; 80061; 82607; 82746; 83036; 84153; 84439; 84443; 85025

== ENCOUNTER → 2022-07-16 10:47 | Outpatient (BNVA) | payer MEDICARE, BC, SELFPAY | PROVIDERS: PCP Internal Medicine; Visit Provider Internal Medicine Cardiovascular Disease | DX: I34.1 Nonrheumatic mitral (valve) prolapse (principal); I49.3 Ventricular premature depolarization; R06.02 Shortness of breath | CPT/HCPCS: 93005; 99212 ==

== ENCOUNTER 2022-07-17 10:21 | Outpatient (REF) | payer MEDICARE, SELFPAY ==
--- NOTE | ~2022-07-17 | XR_ITS ---
EXAMINATION: XR HAND, RIGHT CLINICAL INFORMATION: Pain COMPARISON: None available. TECHNIQUE: PA, lateral, and oblique views of the right hand. FINDINGS: There is mild reduction of PIP and DIP joint space with periarticular spurring PIP joint first digit and DIP joint fourth and fifth digit. No visible acute fracture or dislocation seen. The soft tissues are normal. XR/XR hand RT 2V IMPRESSION: No acute fracture or dislocation of right hand. Mild degenerative arthritic changes of PIP and DIP joints.
== END 2022-07-17 10:22 | disposition home or self-care (01) ==
LOC: HO.XRAY 10:21
PROVIDERS: PCP Internal Medicine; Visit Provider Nurse Practitioner Family
DX: M79.644 Pain in right finger(s) (principal)
CPT/HCPCS: 73120

== ENCOUNTER → 2022-10-18 09:00 | Outpatient (REF) | payer MEDICARE, SELFPAY ==
--- NOTE | 2022-10-18 09:03 | CA_ITS ---
Acquisition Time: 2022-10-18 09:20:58 Total Exercise Time: 00:04:35 Test Indications: SOB Medications: Protocol: BERNA Max HR: 121 BPM 78% of Pred: 154 BPM Max BP: 186/048 mmHG Max Work Load: 6.5 METS Exercise stress test exercise 4 min 35 sec of Bruice protocol achieving 77% MPHR with moderate to severe SOB, no chest discomfort, with isolated PVCs, PACs, and ventricular cuplets, with normotensive response to exercise, without EKG changes. Test reviewed with Dr. Villaseñor. Referred By: Ron Cortés Overread By: KAPIL CONCEPCION
== END ==
LOC: HO.CARD 09:00
PROVIDERS: Visit Provider Internal Medicine Cardiovascular Disease
DX: R06.02 Shortness of breath (principal)
CPT/HCPCS: 93017

== ENCOUNTER → 2022-11-23 07:48 | Outpatient (REF) | payer MEDICARE, SELFPAY ==
--- NOTE | ~2022-11-23 | NM_ITS ---
Myocardial perfusion study Indication: Shortness of breath to evaluate for myocardial ischemia Technique: The patient was brought in for a Lexiscan perfusion study on 11/23/2022. Patient performed low-level exercise and was injected 0.4 mg of Lexiscan intravenously. Within a minute of injection, 35 mCi of sestamibi was given intravenously. Images were obtained using the SPECT gamma camera interlaced with the gating device. Images were obtained in supine position. Resting perfusion study was performed on 11/26/2022. Patient was administered 35 mCi of sestamibi intravenously at rest. Images were then obtained in supine position. -Images obtained with and without CT attenuation. Total DLP 60 mGy-cm. Images were processed with the software and compared side to side in short axis, horizontal long axis and vertical long axis views. Findings: The stress perfusion study showed both non attenuated as well as attenuated corrected images show some thinning at the distal lateral wall of the LV myocardium. Non attenuated images show moderately reduced uptake in the basal inferior wall of the LV myocardium is well.. The gated study shows normal LV systolic function with calculated LVEF of 60%. LV cavity is normal size. The gated study shows normal systolic wall thickening and contraction of segments. Resting study shows no significant change in pattern compared to stress perfusion study. Gating at rest reveals normal systolic wall motion with ejection fraction at 58%. The findings are consistent with normal myocardial perfusion. NM/NM cardiolite stress test Impression: 1. Myocardial perfusion imaging study shows likely normal myocardial perfusion 2. Gated LVEF is 60% 3. Transient ischemic dilatation not present EKG is nondiagnostic for ischemia I was requested to read this study on 12/03/2022
--- NOTE | 2022-11-23 07:51 | CA_ITS ---
Acquisition Time: 2022-11-23 08:23:25 Total Exercise Time: 00:02:00 Test Indications: Dyspnea Medications: ASA METOPROLOL SIMVASTATIN Protocol: LEXISCAN Max HR: 122 BPM 79% of Pred: 154 BPM Max BP: 128/064 mmHG Max Work Load: 1.6 METS Pharmacological stress test with Lexiscan injection while walking slowly on the treadmill, without anginal symptoms, without arrhythmias, with normotensive response to injection and exercise, with non-diagnositic EKGs. Aminophylline 75mg IVP given to reverse Lexiscan. Nuclear images pending. Test reviewed with Dr. Armas. Referred By: Val Perez Overread By: CRISTIAN ARMAS
== END ==
LOC: HO.CARD 07:48
PROVIDERS: Visit Provider Nurse Practitioner Family
DX: I34.1 Nonrheumatic mitral (valve) prolapse (principal); R06.02 Shortness of breath; R94.39 Abnormal result of other cardiovascular function study
CPT/HCPCS: 78452; 93017; A9500; J0280; J2785

== ENCOUNTER → 2022-11-23 07:51 | Outpatient (BNV) | payer MEDICARE, SELFPAY | PROVIDERS: Visit Provider Internal Medicine | DX: R06.02 Shortness of breath (principal) | CPT/HCPCS: 78452; 93016; 93018 ==

== ENCOUNTER 2023-03-26 09:44 | Outpatient (AMB) | payer MEDICARE, SELFPAY ==
[2023-03-26 09:48] VITALS: BP 118/72; PULSE 72; O2SAT 97; BMI 30.4
--- NOTE | 2023-03-26 09:48 | MHC.PC.OV ---
Vital Signs 03/26/23 09:48 Height 6 ft 2 in Weight 237 lb BMI 30.4 Intake Visit Reasons: AWV Allergies No Known Allergies [No Known Allergies*] Allergy (Verified 07/17/22 09:51) Tobacco use date assessed: 07/17/22 [facility] Medical History Arthritis Back pain Cataract COVID-19 vaccine series completed Diverticulosis Hemorrhoids Hypercholesterolemia Lumbar disc 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 Mitral valve prolapse PVCs (premature ventricular contractions) Ulnar neuropathy Vitamin D deficiency Surgical History Cataract extraction status, unspecified eye History of inguinal hernia repair History of vasectomy Hx of colonoscopy Family History Father Hypertension Abdominal aneurysm Mother Lymphoma Maternal Aunt Lymphoma Brother CAD (coronary artery disease) Myocardial infarction Family/Other Hypercholesterolemia History of high blood pressure CAD (coronary artery disease) Social History Housing: House Are you a primary care professionals to a significant other at home: No Do you presently have visiting nurse or other home services: No Alcohol intake: current Alcohol intake frequency: 0-2 drinks per day Patient Tobacco Use Status: Former Tobacco user Quit Date: 1995 Tobacco use type: Cigarette Years Smoked: stopped 1995 e-Cigarette/Vaping Use: Never Used Second Hand Smoke Exposure: No service: No Current occupational status: retired Cognitive needs: No Hearing needs: No Vision needs: No Questionnaire Thrive Questionnaire Date Thrive assessed: 07/17/22 EDWIN-7 AMB Questionnaire EDWIN-7 Date EDWIN - 7 assessed: 07/17/22 Source: Developed by Drs. Conor Valdez, Ave Foster, Moose Fang and colleagues, with an educational jenn from [employer]. Physical exam (Primary Care) Tobacco/Smoking Status: Tobacco use Status Tobacco use date assessed 07/17/22 07/17/22 09:56 Patient Tobacco Use Status Former Tobacco user 07/17/22 09:50 Tobacco use type Cigarette 07/17/22 09:50 e-Cigarette/Vaping Use Never Used 07/17/22 09:50 Thrive Assessment: Date of Thrive Assessment Date Thrive assessed 07/17/22 07/17/22 09:56 Coding
--- NOTE | 2023-03-26 09:57 | A.OFFVIS_ITS ---
Intake Vital Signs 03/26/23 09:48 03/26/23 10:01 Height 6 ft 2 in Weight 237 lb BMI 30.4 30.4 BP 118/72 Blood Pressure Location Lt brachial Position Sitting Pulse 72 Pulse Source Pulse Oximeter Pulse Oximetry (%) 97 Oxygen Delivery Method Room Air Intake Visit Reasons: AWV Intake Note: Patient is here for an Annual Wellness Visit. 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: No Accompanied by: Self / Same As Patient Allergies No Known Allergies [No Known Allergies*] Allergy (Verified 03/26/23 10:09) Medication List - Last Reconciled 03/26/23 by RACHELLE Chairez aspirin (Adult Low Dose Aspirin) 81 mg PO DAILY cholecalciferol (vitamin D3) 25 mcg PO DAILY cyanocobalamin (vitamin B-12) 1,000 mcg PO DAILY diphenhydramine HCl (NightTime Sleep Aid (diphenhydramine)) 25 mg PO BEDTIME folic acid 0.8 mg PO DAILY metoprolol succinate ER 50 mg PO DAILY simvastatin 20 mg PO BEDTIME HPI HPI Comments History of Present Illness Details 68-year-old male past medical history si gnificant for hypercholesteremia, vitamin-D deficiency, mitral valve prolapse, impaired glucose tolerance, COPD. Patient presents today for initial annual wellness visit. hx abnormal stress test, follows with cardoiology. Patient reports when doing work in his yard raking too much he will get winded likely related to history of COPD. Patient question about possible handicap placard due to getting winded if he has to park far way from the Stores, patient advised he can bring form into office in drop at this to be completed. Eye exam: Up-to-date, follows with Dr. Doss Colonoscopy: Completed by Dr. Magallanes 2019 [place] of care was reviewed with patient patient was provided with written screening schedule. [facility] Medical History COVID-19 vaccine series completed Cataract Arthritis Back pain PVCs (premature ventricular contractions) Mitral valve prolapse Lumbar disc herniation Hemorrhoids Diverticulosis 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 Ulnar neuropathy Vitamin D deficiency Hypercholesterolemia Surgical History Hx of colonoscopy Cataract extraction status, unspecified eye History of inguinal hernia repair History of vasectomy Family History Father Hypertension Abdominal aneurysm Mother Lymphoma Maternal Aunt Lymphoma Brother CAD (coronary artery disease) Myocardial infarction Family/Other Hypercholesterolemia History of high blood pressure CAD (coronary artery disease) Social History Housing: House Are you a primary technical healthcare consultant to a significant other at home: No Do you presently have visiting nurse or other home services: No Alcohol intake: current Alcohol intake frequency: 0-2 drinks per day Patient Tobacco Use Status: Former Tobacco user Quit Date: 1995 Tobacco use type: Cigarette Years Smoked: stopped 1995 e-Cigarette/Vaping Use: Never Used Second Hand Smoke Exposure: No service: No Current occupational status: retired Cognitive needs: No Hearing needs: No Vision needs: No Questionnaire Medicare Wellness Checkup [age] What gender do you identify with?: male During the past 4 weeks, how much have you been bothered by emotional problems such as feeling anxious, depressed, irritable, sad or downhearted, and blue?: not at all During the past 4 weeks, has your physical & emotional health limited your social activities with family, friends, neighbors, or groups?: slightly During the past 4 weeks, how much bodily pain have you generally had?: mild pain During the past 4 weeks, was someone available to help you if you needed & wanted help?: yes, as much as I wanted During the past 4 weeks, what was the hardest physical activity you could do for at least 2 minutes?: moderate Can you get to places out of walking distance without help? (For eg., can you travel alone on buses, taxis or drive your car?): Yes Can you go shopping for groceries or clothes without someone's help?: Yes Can you prepare your own meals?: Yes Can you do your housework without help?: Yes Because of any health problems, do you need the help of another person with your personal care needs such as eating, bathing, dressing or getting around the house?: No Can you handle your own money without help?: Yes During the past 4 weeks, how would you rate your health in general?: very good During the past 4 weeks how have things been going for you?: pretty well Are you having difficulties driving your car?: no Do you always fasten your seat belt when you are in a car?: yes, usually During past 4 weeks, have you been bothered by the following: never: Sexual problems?, Trouble eating well?, Teeth or denture problems? and Problems using the telephone? and seldom: Falling or dizzy when standing up and Tiredness or fatigue? Have you fallen 2 or more times in the past year?: No Are you afraid of falling?: No Are you a smoker?: no During the past 4 weeks, how many drinks of wine, beer, or other alcoholic beverages did you have?: 6-9 drinks per week Do you exercise for about 20 minutes 3 or more times a week?: no, I usually do not exercise this much Have you been given information to help with the following?: no: Hazards in your house that might hurt you? and no: Keeping track of your medications? How often do you have trouble taking medicines the way you have been told to take them?: I always take medicine as prescribed How confident are you that you can control & manage most of your health problems?: very confident What is your race?: White Mini Mental State Exam (MMSE) Orientation What is the (year) (season) (date) (day) (month)?: year, season, date, day and month Score Score: 5 Activity of Daily Living Bathing - sponge bath, tub bath or shower: receives no assistance (gets in/out by self, if usual bathing means Dressing - getting clothes from closets & drawers, including inner/outer garments & fasteners.: gets clothes & gets completely dressed without help Toileting - going to the 'toilet room' for urine/bowel elimination & cleaning self/arranging clothes: goes to toilet room, cleans self, arranges clothes without help Transfer: moves in & out of bed and chair without help (may use support object) Continence: controls urination/bowel movements completely by self Feeding: feeds self without help Total Score: 0 Information obtained from: patient Using telephone: independent Traveling: independent Shopping: independent Preparing meals: independent Housework: independent Taking medicine: independent Managing money: independent PHQ-9 Over the last 2 weeks, how often have you been bothered by any of the following problems? 1. Little interest or pleasure in doing things: not at all 2. Feeling down, depressed, or hopeless: not at all 3. Trouble falling or staying asleep, or sleeping too much: not at all 4. Feeling tired or having little energy: not at all 5. Poor appetite or overeating: not at all 6. Feeling bad about yourself - or that you are a failure or have let yourself or your family down: not at all 7. Trouble concentrating on things, such as reading the newspaper or watching television: not at all 8. Moving or speaking so slowly that other people could have noticed. Or the opposite - being so fidgety or restless that you have been moving around a lot more than usual: not at all 9. Thoughts that you would be better off or of hurting yourself in some way: not at all Total score: 0 Depression Screening Interpretation: Negative Depression Screening Done: Yes 71343 - PHQ-9 Billing: Yes Source: Developed by Drs. Conor Valdez, Ave Foster, Moose Fang and colleagues, with an educational jenn from [employer]. Physical Exam Vital Signs: Last Vital Signs Pulse 72 03/26/23 09:48 BP 118/72 03/26/23 09:48 Pulse Ox 97 03/26/23 09:48 Oxygen Delivery Method Room Air 03/26/23 09:48 BMI result Body Mass Index 30.4 Const General: cooperative and no acute distress Orientation/consciousness: patient oriented x3 HEENT Ears: other (whisper test: pass) Neuro General: patient oriented x3 Gait exam (Neuro): Normal gait present Coordination: tandem gait normal and Romberg test negative Assessment & Plan Assessment & Plan (1) COPD (chronic obstructive pulmonary disease): Comment: No obstructive or restrictive ventilatory defect. No bronchodilator response except in small to medium airways. Decreased expiratory reserve volume suggests extrathoracic restriction likely secondary to abdominal obesity. Decreased diffusion capacity suggests emphysema. March 2022 Code(s): J44.9 - Chronic obstructive pulmonary disease, unspecified Plan: Patient states gets winded when over exerting himself such as raking. Offered referral to pulmonology however he would like to hold off at this time. Patient requesting [employer] for his vehicle, patient advise can bring form and office for this to be completed. (2) Impaired glucose tolerance: Code(s): R73.02 - Impaired glucose tolerance (oral) Plan: Fasting glucose ordered. (3) Hypercholesterolemia: Code(s): E78.00 - Pure hypercholesterolemia, unspecified Plan: Continue on simvastatin 20 mg daily. Follow low-cholesterol diet. Fasting lipid panel ordered. (4) Mitral valve prolapse: Comment: Sees Dr Cortés Code(s): I34.1 - Nonrheumatic mitral (valve) prolapse Plan: Continue to follow with Cardiology (5) Medicare annual wellness visit, initial: Code(s): Z00.00 - Encounter for general adult medical examination without abnormal findings Plan: Follow-up in 1 year. Plan Follow-up in 1 year sooner if needed Orders: Orders Complete Blood Count Auto Diff Today Z13.0 - Encounter for screening for diseases of the blood and blood-forming organs and certain disorders involving the immune mechanism Lipid Panel Today Z13.220 - Encounter for screening for lipoid disorders Prostate Specific Antigen Scr Today Z12.5 - Encounter for screening for malignant neoplasm of prostate Comprehensive [place]. Panel Fast Today Z13.1 - Encounter for screening for diabetes mellitus TSH reflex Free T4 Today Z13.29 - Encounter for screening for other suspected endocrine disorder Quality Reporting (2019) Depression/Bipolar (159/160/161/177) PHQ-9: Total score: 0 Coding Level of Care Code Medicare First (G0438) Diagnoses COPD (chronic obstructive pulmonary disease) J44.9 Impaired glucose tolerance R73.02 Hypercholesterolemia E78.00 Mitral valve prolapse I34.1 Medicare annual wellness visit, initial Z00.00
[2023-03-26 10:01] VITALS: BMI 30.4
== END 2023-03-26 10:29 | disposition home or self-care (01) ==
PROVIDERS: Visit Provider Nurse Practitioner Family
DX: J44.9 Chronic obstructive pulmonary disease, unspecified (principal); R73.02 Impaired glucose tolerance (oral); E78.00 Pure hypercholesterolemia, unspecified; I34.1 Nonrheumatic mitral (valve) prolapse; Z00.00 Encounter for general adult medical examination without abnormal findings
CPT/HCPCS: G0438

== ENCOUNTER 2023-04-05 07:39 | Outpatient (REF) | payer MEDICARE, SELFPAY ==
[2023-04-05 11:21] LABS: MANUAL DIFF FLAG NO
[2023-04-05 11:30] LABS: Basophils Percent Auto 0.7 % (0-2); Eosinophils Absolute Auto 0.2 X10*3/uL (0.0-0.4); Eosinophils Percent Auto 3.4 % (0-4); Hematocrit 46.1 % (42.0-52.0); Hemoglobin 15.7 g/dl (14.0-18.0); Imm Gran Abs Auto 0.01 X10*3/uL (0.00-0.03); Imm Gran Pct Auto 0.2 % (0.0-0.4); Lymphocytes Absolute Auto 1.5 X10*3/uL (1.2-4.9); Lymphocytes Percent Auto 34.6 % (20-40); Mean Corpuscular HGB Conc 34.1 g/dl (31.0-36.0); Mean Corpuscular Hemoglobin 32.8 pg (27.0-33.0); Mean Corpuscular Volume 96.4 fL (80.0-98.0); Mean Platelet Volume 10.1 fL (9.4-12.4); Monocytes Absolute Auto 0.4 X10*3/uL (0.1-1.2); Monocytes Percent Auto 8.8 % (2-11); Neutrophils Absolute Auto 2.3 x10*3/uL (2.0-8.3); Neutrophils Percent Auto 52.3 % (45-73); Platelet Count 214 X10*3/uL (160-400); Red Blood Count 4.78 X10*6/uL (4.60-5.80); White Blood Count 4.5 X10*3/uL (4.8-10.8)
[2023-04-05 12:01] LABS: Alanine Aminotransferase 29 U/L (0-40); Albumin Level 4.2 g/dL (3.5-5.0); Alkaline Phosphatase 50 U/L (39-117); Anion Gap 15 (12-20); Aspartate Amino Transferase 22 U/L (5-37); Bilirubin Total 0.5 mg/dL (0.0-1.0); Blood Urea Nitrogen 15 mg/dL (9-16); Calcium 9.6 mg/dL (8.4-10.2); Carbon Dioxide 22 mmol/L (22-29); Chloride 110 mmol/L (96-108); Cholesterol 177 mg/dL (<200); Estimated Glomerular Filt Rate > 60; Glucose Fasting 109 mg/dL (60-99); HDL Cholesterol 38 mg/dL (>40); LDL Cholesterol Calculated 99 mg/dL (<100); Potassium 4.1 mmol/L (3.3-5.1); Sodium 143 mmol/L (135-145); Total Protein 7.7 g/dL (6.5-8.0); Triglycerides 203 mg/dL (<150)
[2023-04-05 12:03] LABS: Prostate Specific Antigen Scr 0.78 ng/mL (<0.05-4.0)
[2023-04-05 12:22] LABS: TSH reflex Free T4 2.69 uIU/mL (0.32-4.0)
== END 2023-04-05 07:40 | disposition home or self-care (01) ==
LOC: HO.WFDLDS 07:39
PROVIDERS: Visit Provider Nurse Practitioner Family
DX: Z13.29 Encounter for screening for other suspected endocrine disorder (principal); Z13.220 Encounter for screening for lipoid disorders; Z13.1 Encounter for screening for diabetes mellitus; Z13.0 Encounter for screening for diseases of the blood and blood-forming organs and certain disorders involving the immune mechanism; Z12.5 Encounter for screening for malignant neoplasm of prostate; Z20.2 Contact with and (suspected) exposure to infections with a predominantly sexual mode of transmission
CPT/HCPCS: 36415; 80053; 80061; 84153; 84443; 85025

== ENCOUNTER 2023-04-12 07:36 | Outpatient (REF) | payer MEDICARE, SELFPAY ==
[2023-04-12 11:58] LABS: Alanine Aminotransferase 36 U/L (0-40); Albumin Level 4.3 g/dL (3.5-5.0); Alkaline Phosphatase 51 U/L (39-117); Anion Gap 10 (12-20); Aspartate Amino Transferase 29 U/L (5-37); Bilirubin Total 0.6 mg/dL (0.0-1.0); Blood Urea Nitrogen 15 mg/dL (9-16); Calcium 9.7 mg/dL (8.4-10.2); Carbon Dioxide 28 mmol/L (22-29); Chloride 107 mmol/L (96-108); Estimated Average Glucose 103 mg/dL; Estimated Glomerular Filt Rate > 60; Glucose Fasting 101 mg/dL (60-99); Hemoglobin A1c % 5.2 % (<6.0); Potassium 4.4 mmol/L (3.3-5.1); Sodium 141 mmol/L (135-145); Total Protein 7.9 g/dL (6.5-8.0)
== END 2023-04-12 07:37 | disposition home or self-care (01) ==
LOC: HO.WFDLDS 07:36
PROVIDERS: Visit Provider Nurse Practitioner Family
DX: R73.01 Impaired fasting glucose (principal)
CPT/HCPCS: 36415; 80053; 83036

== ENCOUNTER 2023-04-23 16:04 | Outpatient (AMB) | payer MEDICARE, SELFPAY ==
[2023-04-23 16:05] VITALS: BP 130/90; PULSE 69; O2SAT 99; BMI 30.8
--- NOTE | 2023-04-23 16:05 | MHC.PC.OV ---
Vital Signs 04/23/23 16:05 Height 6 ft 2 in Weight 240 lb BMI 30.8 BP 130/90 H Blood Pressure Location Lt brachial Position Sitting Pulse 69 Pulse Source Pulse Oximeter Pulse Oximetry (%) 99 Oxygen Delivery Method Room Air Intake Visit Reasons: Back Pain Intake Note: pt states lower right sided back pain X1week. pt states heavy lifting Workers Compensation Coordinator Required: No Allergies No Known Allergies [No Known Allergies*] Allergy (Verified 04/23/23 16:10) Medication List - Last Reconciled 04/23/23 by Sanjay Salgado MD aspirin (Adult Low Dose Aspirin) 81 mg PO DAILY baclofen 10 mg PO BEDTIME cholecalciferol (vitamin D3) 25 mcg PO DAILY cyanocobalamin (vitamin B-12) 1,000 mcg PO DAILY diphenhydramine HCl (NightTime Sleep Aid (diphenhydramine)) 25 mg PO BEDTIME folic acid 0.8 mg PO DAILY metoprolol succinate ER 50 mg PO DAILY prednisone 4 tabs QD x 2 days then 3 tabs QD x 2 days then 2 tabs Qd x 2 days then 1 tab QD x 2 days PO daily; simvastatin 20 mg PO BEDTIME Tobacco use date assessed: 04/23/23 Fall risk assessment: No Falls in past year Last assessed Fall Risk: 04/23/23 Dental Screening Dental Screen Date: 04/23/23 HPI Back Pain HPI Details 68-year-old obese male with COPD impaired glucose tolerance hypercholesterolemia coming in for follow-up. Last seen March 2023 for wellness. 1 week ago sore back deny fall PFSH Medical History COVID-19 vaccine series completed Cataract Arthritis Back pain PVCs (premature ventricular contractions) Mitral valve prolapse Lumbar disc herniation Hemorrhoids Diverticulosis 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 Ulnar neuropathy Vitamin D deficiency Hypercholesterolemia Surgical History Hx of colonoscopy Cataract extraction status, unspecified eye History of inguinal hernia repair History of vasectomy Family History Father Hypertension Abdominal aneurysm Mother Lymphoma Maternal Aunt Lymphoma Brother CAD (coronary artery disease) Myocardial infarction Family/Other Hypercholesterolemia History of high blood pressure CAD (coronary artery disease) Social History Housing: House Are you a primary intensive care nurse to a significant other at home: No Do you presently have visiting nurse or other home services: No Alcohol intake: current Alcohol intake frequency: 0-2 drinks per day Patient Tobacco Use Status: Former Tobacco user Quit Date: 1995 Tobacco use type: Cigarette Years Smoked: stopped 1995 e-Cigarette/Vaping Use: Never Used Second Hand Smoke Exposure: No service: No Current occupational status: retired Cognitive needs: No Hearing needs: No Vision needs: No Questionnaire Thrive Questionnaire Date Thrive assessed: 07/17/22 AUDIT C Alcohol Use Questionnaire (AUDIT-C) 1. How often do you have a drink containing alcohol?: 2-3 times a week 2. How many drinks containing alcohol do you have on a typical day when you are drinking?: 1 or 2 3. How often do you have six or more drinks on one occasion?: Never Total Score: 3 EDWIN-7 AMB Questionnaire EDWNI-7 Date EDWIN - 7 assessed: 07/17/22 Source: Developed by Drs. Conor Valdez, Ave Foster, Moose Fang and colleagues, with an educational jenn from [employer]. Physical exam (Primary Care) Vital Signs: Last Vital Signs Pulse 69 04/23/23 16:05 BP 130/90 H 04/23/23 16:05 Pulse Ox 99 04/23/23 16:05 Oxygen Delivery Method Room Air 04/23/23 16:05 Next steps: Right paravertebral area to an area above iliac area no swelling red BMI result Body Mass Index 30.8 Tobacco/Smoking Status: Tobacco use Status Tobacco use date assessed 04/23/23 04/23/23 16:06 Patient Tobacco Use Status Former Tobacco user 04/23/23 16:06 Tobacco use type Cigarette 04/23/23 16:06 e-Cigarette/Vaping Use Never Used 04/23/23 16:06 Thrive Assessment: Date of Thrive Assessment Date Thrive assessed 07/17/22 04/23/23 16:06 Const General: alert; No acute distress Eyes Conjunctivae: conjunctivae normal Resp Auscultation: clear to auscultation bilaterally Cardio Rate: regular rate Rhythm: regular rhythm GI Inspection: Yes normal to inspection Extrem General: Yes normal to inspection and No edema Assessment and Plan Assessment & Plan (1) Obesity (BMI 30.0-34.9): Code(s): E66.9 - Obesity, unspecified Plan: Diet and exercise (2) Impaired glucose tolerance: Code(s): R73.02 - Impaired glucose tolerance (oral) Plan: Decrease the amount of carbohydrate intake, pasta, bread, rice and potatoes are all sugar and that is aside from all the sweet stuff, remember that fruits are good but they are Sweet also. (3) Low back pain: Code(s): M54.50 - Low back pain, unspecified Plan: heat helps, steroid rx, - discussed about side effects and take with food and muscle relaxants did discussed with the patient that if the pain persist will need to follow-up as we will have to evaluate further. Medications: New prednisone 4 tabs QD x 2 days then 3 tabs QD x 2 days then 2 tabs Qd x 2 days then 1 tab QD x 2 days PO daily; 20 tabs 0RF J45.909 - Unspecified asthma, uncomplicated, M54.50 - Low back pain, unspecified baclofen 10 mg PO BEDTIME 20 tabs 0RF M54.50 - Low back pain, unspecified Coding Level of Care Code Est Pt Level 4 (20185) Diagnoses Obesity (BMI 30.0-34.9) E66.9 Impaired glucose tolerance R73.02 Low back pain M54.50
== END 2023-04-23 16:51 | disposition home or self-care (01) ==
PROVIDERS: Visit Provider Internal Medicine
DX: R73.02 Impaired glucose tolerance (oral) (principal); M54.50 Low back pain, unspecified; E66.9 Obesity, unspecified; Z68.30 Body mass index [BMI] 30.0-30.9, adult
CPT/HCPCS: 99214

== ENCOUNTER 2023-07-17 08:42 | Outpatient (AMB) | payer MEDICARE, BC, SELFPAY ==
[2023-07-17 08:50] VITALS: BP 140/80; PULSE 65; BMI 28.3
--- NOTE | 2023-07-17 08:50 | A.OFFVIS_ITS ---
Intake Vital Signs 07/17/23 08:50 Height 6 ft 2 in Weight 220 lb 7.396 oz BMI 28.3 BP 140/80 H Blood Pressure Location Lt brachial Position Sitting Pulse 65 Intake Visit Reasons: 1 yr f/u Intake Note: 1 year follow-up with ekg jaun good Materials Handling Coordinator Required: No Allergies No Known Allergies [No Known Allergies*] Allergy (Verified 04/23/23 16:10) Medication List - Last Reconciled 07/17/23 by Ron Cortés MD aspirin (Adult Low Dose Aspirin) 81 mg PO DAILY cholecalciferol (vitamin D3) 25 mcg PO DAILY cyanocobalamin (vitamin B-12) 1,000 mcg PO DAILY diphenhydramine HCl (NightTime Sleep Aid (diphenhydramine)) 25 mg PO BEDTIME folic acid 0.8 mg PO DAILY metoprolol succinate ER 50 mg PO DAILY simvastatin 20 mg PO BEDTIME HPI HPI Comments History of Present Illness Details Diallo comes for follow-up. Patient said few months ago he had 1 episode of rapid heart rate, he recorded on his EKG why the watch and was noted to have narrow complex tachycardia at 150 beats per minute. Symptoms subsided by themselves after few minutes. He did call our office and we did instruct him for vagal maneuvers. Since then he has had no further episodes. He also denies any skipped heartbeats. Continues to have exertional shortness of breath, diagnose with emphysema based of PFTs. His myocardial perfusion imaging last year was within normal limits. Echo did not show any significant worsening of his mitral regurgitation. [facility] Medical History COVID-19 vaccine series completed Cataract Arthritis Back pain PVCs (premature ventricular contractions) Mitral valve prolapse Lumbar disc herniation Hemorrhoids Diverticulosis 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 Ulnar neuropathy Vitamin D deficiency Hypercholesterolemia Surgical History Hx of colonoscopy Cataract extraction status, unspecified eye History of inguinal hernia repair History of vasectomy Family History Father Hypertension Abdominal aneurysm Mother Lymphoma Maternal Aunt Lymphoma Brother CAD (coronary artery disease) Myocardial infarction Family/Other Hypercholesterolemia History of high blood pressure CAD (coronary artery disease) Social History Housing: House Are you a primary direct care provider to a significant other at home: No Do you presently have visiting nurse or other home services: No Alcohol intake: current Alcohol intake frequency: 0-2 drinks per day Patient Tobacco Use Status: Former Tobacco user Quit Date: 1995 Tobacco use type: Cigarette Years Smoked: stopped 1995 e-Cigarette/Vaping Use: Never Used Second Hand Smoke Exposure: No service: No Current occupational status: retired Cognitive needs: No Hearing needs: No Vision needs: No Review of Systems Const Denies chills, Denies fatigue, Denies fever(s), Denies frequent falls, Denies weakness, Denies weight gain and Denies weight loss ENT Denies dizziness Card Denies chest pain, Denies leg edema, Denies lightheadedness, Denies palpitations, Denies dyspnea, Denies dyspnea on exertion, Denies orthopnea and Denies other (loss of consciousness) Resp Denies cough, Denies dyspnea and Denies dyspnea on exertion GI Denies hematochezia and Denies change in stool character Musc Denies abnormal gait, Denies muscle weakness, Denies numbness, Denies radiating pain into limb and Denies tingling Neuro Denies abnormal gait, Denies dizziness, Denies frequent falls, Denies numbness, Denies tingling and Denies weakness Endo Denies fatigue and Denies palpitations Physical Exam Vital Signs: Last Vital Signs Pulse 65 07/17/23 08:50 BP 140/80 H 07/17/23 08:50 BMI result Body Mass Index 28.3 Const General: cooperative, comfortable, no acute distress, alert, awake and Physically active Nutritional Appearance: overweight Orientation/consciousness: patient oriented x3 Limitations: no limitations Neck Neck: Yes trachea midline, Yes supple and Yes no JVD Resp Effort & Inspection: normal respiratory effort Auscultation: clear to auscultation bilaterally Cardio Jugular venous distension: no JVD Palpation: normal PMI Rate: regular rate Rhythm: regular rhythm Heart sounds: S1 normal heart sound present, S2 normal heart sound present and Clicking heart sound present (Mid systolic) GI Auscultation: normal bowel sounds Skin General skin exam: no rashes or lesions noted Neuro General: patient oriented x3 and no focal motor deficits Extrem General: Yes no clubbing, cyanosis or edema Psych Appearance: grossly normal Office Procedures EKG Details: EKG shows normal sinus rhythm with possible left atrial enlargement with poor R- wave progression due to lead placement [id number], Complete Assessment & Plan Assessment & Plan (1) Supraventricular tachycardia: Code(s): I47.10 - Supraventricular tachycardia, unspecified Plan: 1 episode of supraventricular tachycardia that was recorded by EKG on his watch. It was treated well by itself and subsided. We discussed about pathophysiology of supraventricular tachycardia. We discussed vagal maneuvers. Continue metoprolol therapy. Avoidance of stimulants was discussed. If he continues to have episodes then will pursue other forms of therapy including ablation. This was discussed with him. (2) PVCs (premature ventricular contractions): Code(s): I49.3 - Ventricular premature depolarization Plan: Past medical history significant PVC burden which is not improved with metoprolol therapy. Continue metoprolol therapy. Avoidance of stimulants was discussed. Stress mitigation strategies were discussed. (3) Mitral valve prolapse: Comment: Sees Dr Cortés Code(s): I34.1 - Nonrheumatic mitral (valve) prolapse Plan: Mitral valve prolapse which is mild. Mild mitral regurgitation noted. No symptoms related to it. His shortness of breath appears to be most likely related to his underlying emphysema/COPD. Consider pulmonary consultation there is worsening of his symptoms. Will follow up in the clinic 1 year's time after an echocardiogram. Thank you for allowing me to partake in his care Coding Level of Care Code Est Pt Level 4 (34119) Diagnoses Supraventricular tachycardia I47.10 PVCs (premature ventricular contractions) I49.3 Mitral valve prolapse I34.1 CPT Codes EKG - CPT: 90324-[id number], Complete ([id number])
== END 2023-07-17 09:20 | disposition home or self-care (01) ==
PROVIDERS: Visit Provider Internal Medicine Cardiovascular Disease
DX: I47.10 Supraventricular tachycardia, unspecified (principal); I49.3 Ventricular premature depolarization; I34.1 Nonrheumatic mitral (valve) prolapse
CPT/HCPCS: 93010; 99214

== ENCOUNTER → 2023-07-17 08:42 | Outpatient (BNVA) | payer MEDICARE, BC, SELFPAY | PROVIDERS: Visit Provider Internal Medicine Cardiovascular Disease | DX: I34.1 Nonrheumatic mitral (valve) prolapse (principal); I49.3 Ventricular premature depolarization; I47.10 Supraventricular tachycardia, unspecified | CPT/HCPCS: 93005; 99212 ==

== ENCOUNTER 2024-03-04 11:25 | Outpatient (AMB) | payer MEDICARE, BC, SELFPAY ==
[2024-03-04 11:55] VITALS: BP 122/68; PULSE 56; O2SAT 98; BMI 26.1
--- NOTE | 2024-03-04 11:55 | A.OFFPC_ITS ---
Vital Signs 3 03/04/24 11:55 Height 6 ft 2 in Weight 203 lb BMI 26.1 BP 122/68 Blood Pressure Location Lt brachial Position Sitting Pulse 56 Pulse Source Pulse Oximeter Pulse Oximetry (%) 98 Oxygen Delivery Method Room Air Intake Visit Reasons: Tick Bite Allergies No Known Allergies [No Known Allergies*] Allergy (Verified 03/04/24 11:55) Medication List - Last Reconciled 03/04/24 by Sanjay Salgado MD aspirin (Adult Low Dose Aspirin) 81 mg PO DAILY cholecalciferol (vitamin D3) 25 mcg PO DAILY cyanocobalamin (vitamin B-12) 1,000 mcg PO DAILY diphenhydramine HCl (NightTime Sleep Aid (diphenhydramine)) 25 mg PO BEDTIME doxycycline hyclate 100 mg PO BID folic acid 0.8 mg PO DAILY metoprolol succinate ER 50 mg PO DAILY simvastatin 20 mg PO BEDTIME Tobacco use date assessed: 04/23/23 Fall risk assessment: No Falls in past year Last assessed Fall Risk: 03/04/24 Dental Screening Dental Screen Date: 04/23/23 HPI Tick Bite 2 HPI0 Details 69-YEAR-OLD OBESE MALE WITH IMPAIRED GLU COSE TOLERANCE and hypertriglyceridemia COMING IN FOR AN ACUTE PROBLEM LAST SEEN IN 05/11/2023 tick bite 2 days ago had tick bite L side of the abdomen, kneel 2 months ago L lateral knee pain , deny trauma or fall noted patient has lost a lot a weight and is doing good. Blood pressures has come down also [facility] Medical History COVID-19 vaccine series completed Cataract Arthritis Back pain PVCs (premature ventricular contractions) Mitral valve prolapse Lumbar disc herniation Hemorrhoids Diverticulosis 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 Ulnar neuropathy Vitamin D deficiency Hypercholesterolemia Surgical History Hx of colonoscopy Cataract extraction status, unspecified eye History of inguinal hernia repair History of vasectomy Family History Father Hypertension Abdominal aneurysm Mother Lymphoma Maternal Aunt Lymphoma Brother CAD (coronary artery disease) Myocardial infarction Family/Other Hypercholesterolemia History of high blood pressure CAD (coronary artery disease) Social History Housing: House Are you a primary healthcare advisory services manager to a significant other at home: No Do you presently have visiting nurse or other home services: No Alcohol intake: current Alcohol intake frequency: 0-2 drinks per day Patient Tobacco Use Status: Former Tobacco user Tobacco use type: Cigarette Years Smoked: stopped 1995 e-Cigarette/Vaping Use: Never Used Second Hand Smoke Exposure: No service: No Current occupational status: retired Cognitive needs: No Hearing needs: No Vision needs: No Questionnaire Thrive Questionnaire Date Thrive assessed: 07/17/22 EDWIN-7 AMB Questionnaire EDWIN-7 Date EDWIN - 7 assessed: 07/17/22 Source: Developed by Drs. Conor Valdez, Ave Foster, Moose Fang and colleagues, with an educational jenn from [employer]. Physical exam (Primary Care) Vital Signs: Last Vital Signs Pulse 56 03/04/24 11:55 BP 122/68 03/04/24 11:55 Pulse Ox 98 03/04/24 11:55 Oxygen Delivery Method Room Air 03/04/24 11:55 BMI result Body Mass Index 26.1 Tobacco/Smoking Status: Tobacco use Status Tobacco use date assessed 04/23/23 03/04/24 11:58 Patient Tobacco Use Status Former Tobacco user 03/04/24 11:58 Tobacco use type Cigarette 03/04/24 11:58 e-Cigarette/Vaping Use Never Used 03/04/24 11:58 Thrive Assessment: Date of Thrive Assessment Date Thrive assessed 07/17/22 03/04/24 11:58 GI Abdomen image: 2 1. 1 cm erythematous rash with black scab in the middle Coding Level of Care Code Est Pt Level 4 (94663) Diagnoses Tick bite of abdomen, initial encounter S30.861A; W57.XXXA Encounter type: initial encounter Acute pain of left knee M25.562 Chronicity: acute Impaired glucose tolerance R73.02 Hypercholesterolemia E78.00 Assessment & Plan Assessment & Plan (1) Tick bite of abdomen: Code(s): S30.861A - Insect bite (nonvenomous) of abdominal wall, initial encounter; W57.XXXA - Bitten or stung by nonvenomous insect and other nonvenomous arthropods, initial encounter Category: Medical Qualifiers: Encounter type: initial encounter Qualified Code(s): S30.861A - Insect bite (nonvenomous) of abdominal wall, initial encounter; W57.XXXA - Bitten or stung by nonvenomous insect and other nonvenomous arthropods, initial encounter Plan: will trreat for lyme. and testing advised (2) Knee pain, left: Code(s): M25.562 - Pain in left knee Category: Medical Qualifiers: Chronicity: acute Qualified Code(s): M25.562 - Pain in left knee Plan: presently doing good , will monitor for now (3) Impaired glucose tolerance: Code(s): R73.02 - Impaired glucose tolerance (oral) Category: Medical Plan: Decrease the amount of carbohydrate intake, pasta, bread, rice and potatoes are all sugar and that is aside from all the sweet stuff, remember that fruits are good but they are Sweet also. (4) Hypercholesterolemia: Code(s): E78.00 - Pure hypercholesterolemia, unspecified Category: Medical Plan: Avoid fried foods, chicken skin, eggs, butter margarine, pastries and meat. Be it pork or beef they have a lot of cholesterol blood work requested on simvastatin 20 mg at bedtime Orders: Orders 2 Lyme IgG/IgM w/reflex to WB Today S30.861A - Insect bite (nonvenomous) of abdominal wall, initial encounter, W57.XXXA - Bitten or stung by nonvenomous insect and other nonvenomous arthropods, initial encounter Hemoglobin A1c Today R73.02 - Impaired glucose tolerance (oral) Liver Panel Today R73.02 - Impaired glucose tolerance (oral), R79.89 - Other specified abnormal findings of blood chemistry Comprehensive Met. Panel Today R73.02 - Impaired glucose tolerance (oral) Medications: New 2 doxycycline hyclate 100 mg PO BID 20 caps 0RF S30.861A - Insect bite (nonvenomous) of abdominal wall, initial encounter, W57.XXXA - Bitten or stung by nonvenomous insect and other nonvenomous arthropods, initial encounter
== END 2024-03-04 12:23 | disposition home or self-care (01) ==
PROVIDERS: PCP Internal Medicine; Visit Provider Internal Medicine
DX: S30.861A Insect bite (nonvenomous) of abdominal wall, initial encounter (principal); W57.XXXA Bitten or stung by nonvenomous insect and other nonvenomous arthropods, initial encounter; M25.562 Pain in left knee; R73.02 Impaired glucose tolerance (oral); E78.00 Pure hypercholesterolemia, unspecified

== ENCOUNTER → 2024-03-04 11:25 | Outpatient (BNVA) | payer MEDICARE, BC, SELFPAY | PROVIDERS: PCP Internal Medicine; Visit Provider Internal Medicine | DX: S30.861A Insect bite (nonvenomous) of abdominal wall, initial encounter (principal); W57.XXXA Bitten or stung by nonvenomous insect and other nonvenomous arthropods, initial encounter; M25.562 Pain in left knee; R73.02 Impaired glucose tolerance (oral); E78.00 Pure hypercholesterolemia, unspecified | CPT/HCPCS: 99212 ==

== ENCOUNTER 2024-03-05 08:18 | Outpatient (REF) | payer MEDICARE, BC, SELFPAY ==
[2024-03-05 11:26] LABS: Alanine Aminotransferase 19 U/L (0-40); Albumin Level 4.3 g/dL (3.5-5.0); Alkaline Phosphatase 51 U/L (39-117); Anion Gap 10 (12-20); Aspartate Amino Transferase 23 U/L (5-37); Bilirubin Direct 0.2 mg/dL (0.0-0.5); Bilirubin Total 0.6 mg/dL (0.0-1.0); Blood Urea Nitrogen 14 mg/dL (9-16); Calcium 9.3 mg/dL (8.4-10.2); Carbon Dioxide 29 mmol/L (22-29); Chloride 106 mmol/L (96-108); Estimated Glomerular Filt Rate > 60; Glucose Random 96 mg/dL (60-115); Potassium 4.2 mmol/L (3.3-5.1); Sodium 141 mmol/L (135-145); Total Protein 7.5 g/dL (6.5-8.0)
[2024-03-05 14:13] LABS: Estimated Average Glucose 97 mg/dL; Hemoglobin A1C 118.3997 umol/L; Total Hemoglobin (HGBA1C) 3775.3313 umol/L
[2024-03-07 01:44] LABS: Lyme Abs Screen <0.90 index
== END 2024-03-05 08:19 | disposition home or self-care (01) ==
LOC: HO.WFDLDS 08:18
PROVIDERS: Visit Provider Internal Medicine
DX: S30.861A Insect bite (nonvenomous) of abdominal wall, initial encounter (principal); W57.XXXA Bitten or stung by nonvenomous insect and other nonvenomous arthropods, initial encounter; R73.02 Impaired glucose tolerance (oral); R79.89 Other specified abnormal findings of blood chemistry; Y93.9 Activity, unspecified; Y92.9 Unspecified place or not applicable; Y99.9 Unspecified external cause status
CPT/HCPCS: 36415; 80053; 82248; 83036; 86617; 86618

== ENCOUNTER 2024-05-12 15:47 | Outpatient (AMB) | payer MEDICARE, BC, SELFPAY ==
[2024-05-12 16:44] VITALS: BP 116/80; PULSE 55; O2SAT 95; BMI 26.6
--- NOTE | 2024-05-12 16:44 | AM.OFFVISMDC ---
Intake Vital Signs 05/12/24 16:44 Height 6 ft 2 in Weight 207 lb 6 oz BMI 26.6 BP 116/80 Blood Pressure Location Lt brachial Position Sitting Pulse 55 Pulse Source Pulse Oximeter Pulse Oximetry (%) 95 Oxygen Delivery Method Room Air Intake Visit Reasons: V [id number] Allergies No Known Allergies [No Known Allergies*] Allergy (Verified 03/04/24 11:55) Medication List - Last Reconciled 05/12/24 by Sanjay Salgado MD aspirin (Adult Low Dose Aspirin) 81 mg PO DAILY cholecalciferol (vitamin D3) 25 mcg PO DAILY cyanocobalamin (vitamin B-12) 1,000 mcg PO DAILY diphenhydramine HCl (NightTime Sleep Aid (diphenhydramine)) 25 mg PO BEDTIME folic acid 0.8 mg PO DAILY metoprolol succinate ER 50 mg PO DAILY simvastatin 20 mg PO BEDTIME HPI [facility] [id number] HPI Details 69-year-old overweight male with a history of hypercholesterolemia history of mitral valve prolapse palpitations with metoprolol impaired glucose tolerance COPD coming in for an annual wellness visit last seen in February for tick bite..[place] of care patient has Dr. Larios as Cardiology sees Dr. Magallanes for Gastroenterology Dr. Doss for Ophthalmology [place] [facility] Dr. Thomas. Patient's last colonoscopy was done in 2019. Patient notes cold intolerance and this has been noticed in the last couple of months. Noted also has been losing weight by eating healthier. Patient also was complaining of having lesion or polypoid mass hanging from the rectal area. [facility] Medical History (Updated 05/12/24 @ 17:25 by Sanjay Salgado MD) Cataract Motion sickness Annual physical exam Otitis media of left ear with spontaneous rupture of tympanic membrane Elevated fasting glucose Ear popping Tick bite of abdomen Short of breath on exertion Obesity (BMI 30.0-34.9) COVID-19 vaccine series completed Arthritis Back pain PVCs (premature ventricular contractions) Mitral valve prolapse Lumbar disc herniation Hemorrhoids Diverticulosis 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 Ulnar neuropathy Vitamin D deficiency Hypercholesterolemia Surgical History Hx of colonoscopy Cataract extraction status, unspecified eye History of inguinal hernia repair History of vasectomy Family History Father Hypertension Abdominal aneurysm Mother Lymphoma Maternal Aunt Lymphoma Brother CAD (coronary artery disease) Myocardial infarction Family/Other Hypercholesterolemia History of high blood pressure CAD (coronary artery disease) Social History (Updated 05/12/24 @ 16:57 by Sanjay Salgado MD) Housing: House Are you a primary healthcare administrative assistant to a significant other at home: No Do you presently have visiting nurse or other home services: No Alcohol intake: current Alcohol intake frequency: 0-2 drinks per day Comment: 2x a week 1-2 drinks -beer Patient Tobacco Use Status: Former Tobacco user Tobacco use type: Cigarette Years Smoked: stopped 1995 e-Cigarette/Vaping Use: Never Used Second Hand Smoke Exposure: No service: No Current occupational status: retired Cognitive needs: No Hearing needs: No Vision needs: No Questionnaire Medicare Wellness Checkup What [age] What gender do you identify with?: male During the past 4 weeks, how much have you been bothered by emotional problems such as feeling anxious, depressed, irritable, sad or downhearted, and blue?: not at all During the past 4 weeks, has your physical & emotional health limited your social activities with family, friends, neighbors, or groups?: not at all During the past 4 weeks, how much bodily pain have you generally had?: mild pain During the past 4 weeks, was someone available to help you if you needed & wanted help?: yes, as much as I wanted During the past 4 weeks, what was the hardest physical activity you could do for at least 2 minutes?: moderate Can you get to places out of walking distance without help? (For eg., can you travel alone on buses, taxis or drive your car?): Yes Can you go shopping for groceries or clothes without someone's help?: Yes Can you prepare your own meals?: Yes Can you do your housework without help?: Yes Because of any health problems, do you need the help of another person with your personal care needs such as eating, bathing, dressing or getting around the house?: No Can you handle your own money without help?: Yes During the past 4 weeks, how would you rate your health in general?: very good During the past 4 weeks how have things been going for you?: very well; could hardly better Are you having difficulties driving your car?: no Do you always fasten your seat belt when you are in a car?: yes, usually During past 4 weeks, have you been bothered by the following: never: Falling or dizzy when standing up, Sexual problems?, Trouble eating well? and Problems using the telephone?, seldom: Teeth or denture problems? and sometimes: Tiredness or fatigue? Have you fallen 2 or more times in the past year?: No Are you afraid of falling?: No Are you a smoker?: no During the past 4 weeks, how many drinks of wine, beer, or other alcoholic beverages did you have?: 2-5 drinks per week Do you exercise for about 20 minutes 3 or more times a week?: yes, some of the time Have you been given information to help with the following?: no: Hazards in your house that might hurt you? and no: Keeping track of your medications? How often do you have trouble taking medicines the way you have been told to take them?: I always take medicine as prescribed How confident are you that you can control & manage most of your health problems?: very confident What is your race?: White PHQ-9 Over the last 2 weeks, how often have you been bothered by any of the following problems? 1. Little interest or pleasure in doing things: not at all 2. Feeling down, depressed, or hopeless: not at all 3. Trouble falling or staying asleep, or sleeping too much: not at all 4. Feeling tired or having little energy: not at all 5. Poor appetite or overeating: not at all 6. Feeling bad about yourself - or that you are a failure or have let yourself or your family down: not at all 7. Trouble concentrating on things, such as reading the newspaper or watching television: not at all 8. Moving or speaking so slowly that other people could have noticed. Or the opposite - being so fidgety or restless that you have been moving around a lot more than usual: not at all 9. Thoughts that you would be better off or of hurting yourself in some way: not at all Total score: 0 Source: Developed by Drs. Conor Valdez, Ave Foster, Moose Fang and colleagues, with an educational jenn from [employer]. PHQ-2/PHQ-9 PHQ-2 Over the last 2 weeks, how often have you been bothered by any of the following problems? 1. Little interest or pleasure in doing things: not at all 2. Feeling down, depressed, or hopeless: not at all Total score: 0 If score is 3 or greater, continue 3. Trouble falling or staying asleep, or sleeping too much: not at all 4. Feeling tired or having little energy: not at all 5. Poor appetite or overeating: not at all 6. Feeling bad about yourself - or that you are a failure or have let yourself or your family down: not at all 7. Trouble concentrating on things, such as reading the newspaper or watching television: not at all 8. Moving or speaking so slowly that other people could have noticed. Or the opposite - being so fidgety or restless that you have been moving around a lot more than usual: not at all 9. Thoughts that you would be better off or of hurting yourself in some way: not at all Total score: 0 0-4 None-Minimal, 5-9 Mild, 10-14 Moderate, 15-19 Moderately Severe, 20-27 Severe Source: Developed by Drs. Conor Valdez, Ave Foster, Moose Fang and colleagues, with an educational jenn from [employer]. Thrive Questionnaire Date Thrive assessed: 05/12/24 I am a: Patient What is your living situation today?: I have a steady place to live Within the past 12 months, did the food you bought not last and you didn't have the money to get more?: Never true Within the past 12 months, did you worry whether your food would run out before you got money to buy more?: Never true Do you have trouble paying for medicines?: No Do you have trouble getting transportation to medical appointments?: No Do you have trouble paying your heating and electricity bill?: No Do you have trouble taking care of your child, family member or friend?: No Do you have trouble with day-to-day activities such as bathing, preparing meals, shopping, managing finances, etc.?: No Are you currently unemployed and looking for a job?: No Are you interested in more education?: No Please select the resources that you would like help with: None Currently or been in a relationship where the following occur: No concerns reported THRIVE Score: 0 EDWIN-7 AMB Questionnaire EDWIN-7 Date EDWIN - 7 assessed: 05/12/24 Feeling nervous, anxious, or on edge: 0 = Not at all Not being able to stop or control worryin = Not at all Worrying too much about different things: 0 = Not at all Trouble relaxin = Not at all Being so restless that it is hard to sit still: 0 = Not at all Becoming easily annoyed or irritable: 0 = Not at all Feeling afraid as if something awful might happen: 0 = Not at all Total EDWIN-7 score (0-4 normal; 5-9 mild; 10-14 moderate; 15-21 severe): 0 Source: Developed by Drs. Conor Valdez, Ave Foster, Moose Fang and colleagues, with an educational jenn from [employer]. Review of Systems Const Denies poor appetite and Denies weakness Eyes Denies no additional complaints ENT Reports Normal hearing present, Denies dizziness, Denies nasal congestion, Denies tinnitus and Denies sore throat Card Denies chest pain, Denies syncope, Denies rapid heart rate and Denies dyspnea Resp Denies cough and Denies dyspnea GI Denies change in stool character, Reports constipation, Denies diarrhea, Denies nausea and Denies vomiting Denies dysuria and Denies urinary frequency Neuro Reports Normal hearing present, Denies confusion, Denies dizziness, Denies syncope and Denies weakness Psych Denies confusion Physical Exam Vital Signs: Oxygen Delivery Method Room Air 05/12/24 16:44 Const General: No confusion Orientation/consciousness: No confusion HEENT Head: Yes normocephalic Ears: external ears normal and TM's normal bilaterally Face and sinus: Yes normal facial exam Mouth: moist mucous membranes Throat: Yes tonsils normal Eyes Conjunctivae: conjunctivae normal Pupils: Equal, round and reactive pupils present and Pupil accommodation reflex normal Direct Ophthalmoscopy: normal light reflex Neck Neck: No lymphadenopathy Thyroid: Thyroid normal Chest Chest palpation & inspection: normal inspection of the chest Resp Effort & Inspection: normal respiratory effort and no audible wheezes Auscultation: clear to auscultation bilaterally, no crackles, no wheezes and lung sounds not diminished Cardio Rate: regular rate Rhythm: regular rhythm Peripheral pulses: radial pulses present and dorsalis pedis present GI Other: rectal exam guaiac negative and prostate normal Palpation (GI): no masses Auscultation: normal bowel sounds and normoactive bowel sounds Male General Exam: Yes normal external exam Skin General skin exam: no rashes or lesions noted Rashes: no rashes Neuro General: No confusion Cranial nerves: Yes Equal, round and reactive pupils present and Yes Normal hearing present Cognition (Neuro): normal cognition Gait exam (Neuro): Normal gait present Motor exam (neuro): 5/5 motor strength present throughout Deep tendon reflexes (DTR's): Right brachioradialis reflex intensity grade: 2+, Left brachioradialis reflex intensity grade: 2+, Right patellar reflex intensity grade: 2+ and Left patellar reflex intensity grade: 2+ Extrem General: No edema Assessment & Plan Assessment & Plan (1) Annual wellness visit: Code(s): Z00.00 - Encounter for general adult medical examination without abnormal findings Plan: Patient is advised to eat healthy, keep well hydrated, keep active and have adequate sleep. (2) COPD (chronic obstructive pulmonary disease): Comment: No obstructive or restrictive ventilatory defect. No bronchodilator response except in small to medium airways. Decreased expiratory reserve volume suggests extrathoracic restriction likely secondary to abdominal obesity. Decreased diffusion capacity suggests emphysema. March 2022 Code(s): J44.9 - Chronic obstructive pulmonary disease, unspecified Qualifiers: COPD type: emphysema Emphysema type: unspecified Qualified Code(s): J43.9 - Emphysema, unspecified Plan: Stable and has not required any inhaler (3) Impaired glucose tolerance: Code(s): R73.02 - Impaired glucose tolerance (oral) Plan: Decrease the amount of carbohydrate intake, pasta, bread, rice and potatoes are all sugar and that is aside from all the sweet stuff, remember that fruits are good but they are Sweet also. February blood work is normal (4) Hypercholesterolemia: Code(s): E78.00 - Pure hypercholesterolemia, unspecified Plan: Avoid fried foods, chicken skin, eggs, butter margarine, pastries and meat. Be it pork or beef they have a lot of cholesterol on simvastatin 20 mg at bedtime LDL goal of less than 130 and triglyceride of less than 150. Will need blood Orders: Orders Free T4 (Free Thyroxine) Today R73.01 - Impaired fasting glucose Lipid Panel Today E78.00 - Pure hypercholesterolemia, unspecified, R73.01 - Impaired fasting glucose Hemoglobin A1c Today R73.01 - Impaired fasting glucose Complete Blood Count Auto Diff Today R73.01 - Impaired fasting glucose Comprehensive Met. Panel Today R73.01 - Impaired fasting glucose Thyroid Stimulating Hormone Today R73.01 - Impaired fasting glucose Vitamin B12 and Folate Today R73.01 - Impaired fasting glucose Prostate Specific Antigen Scr Today R73.01 - Impaired fasting glucose Quality Reporting (2019) Depression/Bipolar (159/160/161/177) PHQ-9: Total score: 0 Coding Level of Care Code Medicare Subsequent (G0439) Diagnoses Annual wellness visit Z00.00 Pulmonary emphysema, unspecified emphysema type J43.9 COPD type: emphysema Emphysema type: unspecified Impaired glucose tolerance R73.02 Hypercholesterolemia E78.00
--- OUTSIDE RECORDS SUMMARY | 2024-05-12 17:37 | XMS_ITS | Clinical Summary ---
Author Organization [employer] [facility] Address [address] [place] [address] Care Team Providers Care Certified Shorthand Reporter Name Role Phone Sanjay Salgado MD Primary Care Provider [phone] Social History Tobacco Use Types Packs/Day Years Used Date Smoking Tobacco: Never Assessed Sex and Gender Information Value Date Recorded Sex Assigned at Not on file Gender Identity Not on file Sexual Orientation Not on file Plan of Treatment Health Maintenance Due Date Last Done Comments Hepatitis C Screening 1955 COVID-19 Vaccine (#1) 1955 Depression Screening 1968 Preventative Health Evaluation 02/04/1974 DTap / Tdap / Td (1 - Tdap) 02/04/1975 Colon Cancer Screening (Colonoscopy) 02/04/2001 Shingrix-Zoster Vaccine (1 of 2) 02/04/2006 Fall Risk Assessment 02/04/2021 Pneumococcal Vaccine (1 of 1 - PCV) 02/04/2021 Influenza Vaccine (#1) 2023 RSV Adult > 60+ Yrs or Pregn ant (1 - 1-dose 75+ series) 02/04/2031 Hepatitis B Vaccines Aged Out No long er eligible based on patient's age to complete this topic RSV Ped < 20 months Aged Out No longe r eligible based on patient's age to complete this topic Care Teams Certified Shorthand Reporter Relationship Specialty Start Date End Date Sanjay Salgado MD [address] [place] [address] [address] [facility] [place] [address] PCP - General Internal Medicine 06/20/20
== END 2024-05-12 17:23 | disposition home or self-care (01) ==
PROVIDERS: Visit Provider Internal Medicine
DX: Z00.00 Encounter for general adult medical examination without abnormal findings (principal); J43.9 Emphysema, unspecified; R73.02 Impaired glucose tolerance (oral); E78.00 Pure hypercholesterolemia, unspecified

== ENCOUNTER 2024-06-18 06:52 | Outpatient (REF) | payer MEDICARE, SELFPAY ==
[2024-06-18 07:01] LABS: MANUAL DIFF FLAG NO
[2024-06-18 07:12] LABS: Basophils Percent Auto 0.7 % (0-2); Eosinophils Absolute Auto 0.2 X10*3/uL (0.0-0.4); Eosinophils Percent Auto 3.6 % (0-4); Hematocrit 44.2 % (42.0-52.0); Hemoglobin 14.9 g/dl (14.0-18.0); Imm Gran Abs Auto 0.01 X10*3/uL (0.00-0.03); Imm Gran Pct Auto 0.2 % (0.0-0.4); Lymphocytes Absolute Auto 1.8 X10*3/uL (1.2-4.9); Lymphocytes Percent Auto 41.3 % (20-40); Mean Corpuscular HGB Conc 33.7 g/dl (31.0-36.0); Mean Corpuscular Hemoglobin 32.7 pg (27.0-33.0); Mean Corpuscular Volume 96.9 fL (80.0-98.0); Mean Platelet Volume 9.5 fL (9.4-12.4); Monocytes Absolute Auto 0.4 X10*3/uL (0.1-1.2); Monocytes Percent Auto 9.3 % (2-11); Neutrophils Percent Auto 44.9 % (45-73); Platelet Count 196 X10*3/uL (160-400); Red Blood Count 4.56 X10*6/uL (4.60-5.80); Red Cell Distribution Width 13.1 % (11.0-16.0); White Blood Count 4.4 X10*3/uL (4.8-10.8)
[2024-06-18 07:23] LABS: Estimated Average Glucose 100 mg/dL; Hemoglobin A1c % 5.1 % (<6.0); Total Hemoglobin (HGBA1C) 3936.8898 umol/L
[2024-06-18 07:42] LABS: Alanine Aminotransferase 18 U/L (0-40); Albumin Level 4.3 g/dL (3.5-5.0); Alkaline Phosphatase 49 U/L (39-117); Anion Gap 13 (12-20); Aspartate Amino Transferase 26 U/L (5-37); Bilirubin Total 0.4 mg/dL (0.0-1.0); Blood Urea Nitrogen 14 mg/dL (9-16); Calcium 9.4 mg/dL (8.4-10.2); Carbon Dioxide 26 mmol/L (22-29); Chloride 110 mmol/L (96-108); Cholesterol 152 mg/dL (<200); Estimated Glomerular Filt Rate > 60; Glucose Random 100 mg/dL (60-115); HDL Cholesterol 47 mg/dL (>40); LDL Cholesterol Calculated 83 mg/dL (<100); Potassium 4.9 mmol/L (3.3-5.1); Sodium 144 mmol/L (135-145); Total Protein 7.9 g/dL (6.5-8.0); Triglycerides 111 mg/dL (<150)
[2024-06-18 08:00] LABS: Free T4 (Free Thyroxine) 0.87 ng/dL (0.71-1.85)
[2024-06-18 08:07] LABS: Folate 15.5 ng/mL (> or = 4.0); Vitamin B12 508 pg/mL (200-900)
== END 2024-06-18 06:53 | disposition home or self-care (01) ==
LOC: HO.LAB 06:52
PROVIDERS: PCP Internal Medicine; Visit Provider Internal Medicine
DX: E78.00 Pure hypercholesterolemia, unspecified (principal); R73.01 Impaired fasting glucose; Z12.5 Encounter for screening for malignant neoplasm of prostate
CPT/HCPCS: 36415; 80053; 80061; 82607; 82746; 83036; 84153; 84439; 84443; 85025

== ENCOUNTER → 2024-06-30 08:04 | Outpatient (REF) | payer MEDICARE, SELFPAY ==
--- NOTE | 2024-06-30 08:10 | CA_ITS ---
Transthoracic Echocardiogram Patient (Last, First, Middle): French Sanabria M Gender: Male Date of : 1955 Age: 69 Procedure Date: 06/30/2024 Procedure Type: Transthoracic Echocardiogram Location: OP Height: 185.42 cm Weight: 93.9 kg BSA: 2.18 m2 Heart Rate: bpm BP: 120 / 80 mmHg Photographer Portrait: [email or web address] Referring MD: Ron Cortés MD Symptoms: I34.1 - Nonrheumatic mitral (valve) prolapse Study Quality: Adequate ECG Rhythm: Sinus Conclusions: - The left ventricular systolic function is normal. The calculated ejection fraction is 65% by biplane method. - The mitral valve appears myxomatous. There is mild posterior mitral leaflet prolapse. There is mild mitral valve regurgitation. The mitral regurgitation jet is directed anteriorly. Findings Left Ventricle Normal left ventricular cavity size. There is normal left ventricular wall thickness. The left ventricular systolic function is normal. The calculated ejection fraction is 65% by biplane method. There is no evidence of regional wall motion abnormalities. Diastolic function is normal for age. Right Ventricle Normal right ventricular cavity size and systolic function. Atria Both atria are normal in size. Aortic Valve There is a normal trileaflet aortic valve. There is no aortic valve stenosis. There is trace (trivial) aortic valve regurgitation. Mitral Valve The mitral valve appears myxomatous. There is mild posterior mitral leaflet prolapse. There is mild mitral valve regurgitation. The mitral regurgitation jet is directed anteriorly. There is no mitral valve stenosis. Pulmonic Valve The pulmonic valve is likely normal. Tricuspid Valve Normal tricuspid valve structure. There is no tricuspid valve regurgitation. Tricuspid regurgitation envelope is inadequate for calculation of right ventricular systolic pressure. Great Vessels The aortic arch is normal in size. Top normal ascending aortic size at 3.8 cm. Venous The inferior vena cava is normal in size and collapses greater than 50% with inspiration. Pericardium/Pleural There is no evidence of pericardial effusion. Prior Study Comparison No significant change compared to prior study dated: 05/15/2022. Measurements 2D Linear Measurements IVSd: 0.87 0.6-0.9/0.6-1.0 cm LVIDd: 4.97 3.9-5.3/4.2-5.9 cm LVIDd Index: 2.28 2.4-3.2/2.2-3.1 cm/m2 LVIDs: 3.21 2.0-3.6 cm LVPWd: 0.86 0.7-1.1 cm LA Diam: 3.70 2.7-3.8/3.0-4.0 cm LAIDs Index: 1.70 1.5-2.3 cm/m2 LV Mass: 184.84 67-162/88-224 g LV Mass Index: 84.79 43-95/49-115 g/m2 LVOT Diam: 2.50 3.0+(-)1.3 cm 2D Systolic Function EF 4C: 64.80 >55% EF 2C: 65.80 >55% EF BiP: 65.20 >55% Mitral Valve MV Pk E: 0.83 MV PK A: 0.64 MV Decel Time: 202.00 E/A: 1.30 E'Lateral: 7.18 E'Medial: 6.64 E/E' Med: 12.50 E/E' Lat: 11.60 PHT: 59.00 MVA PHT: 3.73 Decel [place]: 4.11 Aortic Valve AoV Pk Horace: 1.22 AoV Pk Grad: 6.00 LUI: 4.55 LVOT LVOT Pk Horace: 1.10 LVOT Mn Horace: 0.70 LVOT VTI: 0.20 LVOT Pk Grad: 5.00 LVOT Mn Grad: 2.00 LVOT Diam: 2.50 LVOT Area: 4.91 Diastolic Function MV Pk E: 0.83 MV Pk A: 0.64 E/A: 1.30 E'Medial: 6.64 E/E' Med: 12.50 E' Laterial: 7.18 E/E' Lat: 11.60 Right Ventricle TAPSE (mm): 27.50 TVS' Horace: 17.70 Great Vessels Aorta Sinus of Valsalva: 3.30 2.0-3.5 cm Ao Asc: 3.80 2.1-3.4 cm Ao Arch: 2.70 Pulmonary Veins Pulm Vein S/D 0.90 Pulmonary Valve PV Pk Horace: 0.85 Peak PV Grad: 3.00 Updated in Other Vendor System with Status of Final Eugenio Olivarez MD electronically signed on 06/30/2024 11:06:43 AM with status of Final
--- OUTSIDE RECORDS SUMMARY | 2024-06-30 08:33 | XMS_ITS | Clinical Summary ---
Author Organization 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
== END ==
LOC: HO.CARD 08:04
PROVIDERS: PCP Internal Medicine; Visit Provider Internal Medicine Cardiovascular Disease
DX: I34.1 Nonrheumatic mitral (valve) prolapse (principal)
CPT/HCPCS: 93306

== ENCOUNTER → 2024-06-30 08:10 | Outpatient (BNV) | payer MEDICARE, SELFPAY | PROVIDERS: PCP Internal Medicine; Visit Provider Internal Medicine | DX: I34.1 Nonrheumatic mitral (valve) prolapse (principal) | CPT/HCPCS: 93306 ==

== ENCOUNTER 2024-07-09 08:55 | Outpatient (AMB) | payer MEDICARE, SELFPAY ==
[2024-07-09 09:11] VITALS: BP 120/74; PULSE 64; BMI 26.3
--- NOTE | 2024-07-09 09:11 | A.OFFVIS_ITS ---
Vital Signs 07/09/24 09:11 Height 6 ft 2 in Weight 205 lb 0.478 oz BMI 26.3 BP 120/74 Blood Pressure Location Lt brachial Position Sitting Pulse 64 Intake Visit Reasons: 1 yr s/p echo Intake Note: 1 year follow-up with ekg after echo feeling good Criminal Justice Social Worker Required: No Allergies No Known Allergies [No Known Allergies*] Allergy (Verified 03/04/24 11:55) Medication List - Last Reconciled 07/09/24 by Ron Cortés MD aspirin (Adult Low Dose Aspirin) 81 mg PO DAILY cholecalciferol (vitamin D3) 25 mcg PO DAILY cyanocobalamin (vitamin B-12) 1,000 mcg PO DAILY diphenhydramine HCl (NightTime Sleep Aid (diphenhydramine)) 25 mg PO BEDTIME folic acid 0.8 mg PO DAILY metoprolol succinate ER 50 mg PO DAILY simvastatin 20 mg PO BEDTIME HPI Comments Details: Diallo comes for follow-up. He has been doing very well. He has been aggressively participate in lifestyle modification exercising and losing weight. He is f eeling well. No exertional chest pain or shortness of breath. No orthopnea, PND, leg edema. No prolonged palpitation or skipped heartbeats. His recent echocardiogram shows mild mitral valve prolapse with mild mitral regurgitation. Taking his aspirin. [facility] Medical History Cataract Motion sickness Annual physical exam Otitis media of left ear with spontaneous rupture of tympanic membrane Elevated fasting glucose Ear popping Tick bite of abdomen Short of breath on exertion Obesity (BMI 30.0-34.9) COVID-19 vaccine series completed Arthritis Back pain PVCs (premature ventricular contractions) Mitral valve prolapse Lumbar disc herniation Hemorrhoids Diverticulosis 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 Ulnar neuropathy Vitamin D deficiency Hypercholesterolemia Surgical History Hx of colonoscopy Cataract extraction status, unspecified eye History of inguinal hernia repair History of vasectomy Family History Father Hypertension Abdominal aneurysm Mother Lymphoma Maternal Aunt Lymphoma Brother CAD (coronary artery disease) Myocardial infarction Family/Other Hypercholesterolemia History of high blood pressure CAD (coronary artery disease) Social History Housing: House Are you a primary hospice spiritual care coordinator to a significant other at home: No Do you presently have visiting nurse or other home services: No Alcohol intake: current Alcohol intake frequency: 0-2 drinks per day Comment: 2x a week 1-2 drinks -beer Patient Tobacco Use Status: Former Tobacco user Tobacco use type: Cigarette Years Smoked: stopped 1995 e-Cigarette/Vaping Use: Never Used Second Hand Smoke Exposure: No service: No Current occupational status: retired Cognitive needs: No Hearing needs: No Vision needs: No Review of Systems Const Denies chills, Denies fatigue, Denies fever(s), Denies frequent falls, Denies weakness, Denies weight gain and Denies weight loss ENT Denies dizziness Card Denies chest pain, Denies leg edema, Denies lightheadedness, Denies palpitations, Denies dyspnea, Denies dyspnea on exertion, Denies orthopnea and Denies other (loss of consciousness) Resp Denies cough, Denies dyspnea and Denies dyspnea on exertion GI Denies hematochezia and Denies change in stool character Musc Denies abnormal gait, Denies muscle weakness, Denies numbness, Denies radiating pain into limb and Denies tingling Neuro Denies abnormal gait, Denies dizziness, Denies frequent falls, Denies numbness, Denies tingling and Denies weakness Endo Denies fatigue and Denies palpitations Physical Exam Vital Signs: Last Vital Signs Pulse 64 07/09/24 09:11 BP 120/74 07/09/24 09:11 BMI result Body Mass Index 26.3 Const General: cooperative, comfortable, no acute distress, alert, awake and Physically active Nutritional Appearance: overweight Orientation/consciousness: patient oriented x3 Limitations: no limitations Neck Neck: Yes trachea midline, Yes supple and Yes no JVD Resp Effort & Inspection: normal respiratory effort Auscultation: clear to auscultation bilaterally Cardio Jugular venous distension: no JVD Palpation: normal PMI Rate: regular rate Rhythm: regular rhythm Heart sounds: S1 normal heart sound present, S2 normal heart sound present and Clicking heart sound present (Mid systolic) GI Auscultation: normal bowel sounds Skin General skin exam: no rashes or lesions noted Neuro General: patient oriented x3 and no focal motor deficits Extrem General: Yes no clubbing, cyanosis or edema Psych Appearance: grossly normal Office Procedures EKG Details: EKG shows normal sinus rhythm with poor R-wave progression most likely due to body habitus with possible left atrial enlargement. [id number], Complete Assessment & Plan Assessment & Plan (1) Supraventricular tachycardia: Code(s): I47.10 - Supraventricular tachycardia, unspecified Category: Medical Plan: Cardiac arrhythmias with both SVT and PVCs both have improved on metoprolol therapy and with reduction stress. Continue stress mitigation strategies. Avoidance of stimulants was discussed. Continue metoprolol therapy. Advised to call me with any worsening symptoms. Vagal maneuvers were discussed. (2) Mitral valve prolapse: Comment: Sees Dr Cortés Code(s): I34.1 - Nonrheumatic mitral (valve) prolapse Category: Medical Plan: Mild mitral valve prolapse with mild mitral regurgitation. No change in significance at this point time. Pathophysiology of mitral valve prolapse was discussed. Continue low-dose aspirin therapy. Follow-up echocardiogram every 2 years. Will follow up in the clinic in 1 year's time, sooner p.r.n.. Thank you for allowing me to partake in his care Coding Level of Care Code Est Pt Level 4 (56573) Complex EM visit Add On G2211 Diagnoses Supraventricular tachycardia I47.10 Mitral valve prolapse I34.1 CPT Codes EKG - CPT: 66329-[id number], Complete ([id number])
--- OUTSIDE RECORDS SUMMARY | 2024-07-09 09:27 | XMS_ITS | Clinical Summary ---
Author Organization [facility] Address [address] [place] [address] Care Team Providers Care Cleaner Wall Name Role Phone Sanjay Salgado MD Primary Care Provider [phone] Social History Tobacco Use Types Packs/Day Years [...] age to complete this topic Care Teams Cleaner Wall Relationship Specialty Start Date End Date Sanjay Salgado MD [address] [place] [address] [address] [facility] [place] [address] PCP - General Internal Medicine 06/20/20
== END 2024-07-09 09:37 | disposition home or self-care (01) ==
LOC: HO.HCS 08:56
PROVIDERS: Visit Provider Internal Medicine Cardiovascular Disease
DX: I47.10 Supraventricular tachycardia, unspecified (principal); I34.1 Nonrheumatic mitral (valve) prolapse
CPT/HCPCS: 93010; 99214; G2211

== ENCOUNTER → 2024-07-09 08:55 | Outpatient (BNVA) | payer MEDICARE, SELFPAY | PROVIDERS: Visit Provider Internal Medicine Cardiovascular Disease | DX: I47.10 Supraventricular tachycardia, unspecified (principal); I34.1 Nonrheumatic mitral (valve) prolapse | CPT/HCPCS: 93005; 99212 ==

== ENCOUNTER 2024-11-16 17:04 | Outpatient (AMB) | payer MEDICARE, SELFPAY ==
--- OUTSIDE RECORDS SUMMARY | 2024-11-16 17:06 | XMS_ITS | Patient Health Record ---
Author Organization [facility] Address [address] [place] [address] Care Team Providers Care Human Anatomy Teacher Name Role Phone Kevin Newton MD Primary Care Provider Rogerio Kraus Unavailable [phone] Reason For Referral No Information Medications Medication SIG (Take, Route, Frequency, Duration) Notes Start Date End Date Status Work Note . .pt. must avoid eddie ers until further notice . .; Duration: . 08/19/2014 Active Work Note . . . pt is disabled f rom work until 11/22/14 due to procedure and recovery 11/18/2014 Active Meloxicam 15 MG 1 tablet Orally Once a day; Duration: 30 day(s) 08/19/2014 Active Physical Therapy . . . 2-3x/week; Durat ion: 3-4 weeks Active CeleBREX 200 MG 1 capsule Orally Onc e a day; Duration: 30 day(s) 12/22/2014 Active Aleve Active Physical Therapy . . . 2-3x/week; Durat ion: 3-4 weeks 08/19/2014 Active Atorvastatin Calcium 20 MG 1 tablet Oral ly Once a day Active Problems Problem Type SNOMED Code ICD Code Onset Dates Problem Status W/U Status Risk Notes Problem Bursitis (98312466) Bursitis (727.3) Active confirmed Problem Myositis (58391761) Myositis (729.1) Active confirmed Problem Pain in limb (55978517) Pain in Limb (729.5) Active confirmed Problem Plantar fasciitis (253967515) Plantar Fasciitis (728.71) Active confirmed Problem Calcaneal spur (26202591) Calcaneal spur (726.73) Active confirmed Plan Of Treatment No Information Insurance Providers Payer Name Payer Address Payer Phone Subscriber Number Group Number Insured Name Patient Relationship to Insured Coverage Start Date Coverage End Date [facility] [address] [place] [address] [id number] French Sanabria Self - patient is the insured Medical (General) History Medical History History ICD Code Back,Hip,and Knee pain Headaches Migraines Measles Chicken pox
--- OUTSIDE RECORDS SUMMARY | 2024-11-16 17:06 | XMS_ITS | Clinical Summary ---
Author Organization [facility] Address [address] [place] [address] Care Team Providers Care Res Habilitation Assistant Name Role Phone Sanjay Salgado MD Primary Care Provider [phone] Social History Tobacco Use Types Packs/Day Years [...] 1 - PCV) 02/04/2021 Influenza Vaccine (#1) 2024 RSV Adult > 60+ Yrs or Pregn ant (1 - 1-dose 75+ series) 02/04/2031 Hepatitis B Vaccines Aged Out No long er eligible based on patient's age to complete this topic RSV Ped < 20 months Aged Out No longe r eligible based on patient's age to complete this topic Care Teams Res Habilitation Assistant Relationship Specialty Start Date End Date Sanjay Salgado MD [address] [place] [address] [address] [facility] [place] [address] PCP - General Internal Medicine 06/20/20
--- NOTE | 2024-11-16 17:14 | A.OFFPC_ITS ---
Vital Signs 11/16/24 17:16 Height 6 ft 2 in Weight 213 lb BMI 27.3 BP 116/78 Blood Pressure Location Lt brachial Position Sitting Pulse 82 Pulse Source Pulse Oximeter Pulse Oximetry (%) 96 Oxygen Delivery Method Room Air Intake Visit Reasons: Left foot pain Intake Note: Patient here for left foot pain, right side back and rib pain due to fall 11/13, nodule on left hand Network Security Officer Required: No Accompanied by: Spouse Allergies No Known Allergies (No Known Allergies*) Allergy (Verified 11/16/24 17:21) Tobacco use date assessed: 11/16/24 Fall risk assessment: 1 Fall in past year Last assessed Fall Risk: 11/16/24 Dental Screening Dental Screen Date: 04/23/23 Did you have a dental visit in the last 12 months?: Yes Did you have a dental problem in the last 6 months where you did not have access to dental care?: No Was dental information given to patient?: Patient has dentist HPI Left foot pain HPI Details 3 days ago fell in the shower with R up per back pain and comes in with the problem [facility] Medical History (Updated 11/16/24 @ 17:42 by Sanjay Salgado MD) Impaired glucose tolerance Abnormal stress ECG with treadmill Cataract Motion sickness Annual physical exam Otitis media of left ear with spontaneous rupture of tympanic membrane Elevated fasting glucose Ear popping Tick bite of abdomen Short of breath on exertion Obesity (BMI 30.0-34.9) COVID-19 vaccine series completed Arthritis Back pain PVCs (premature ventricular contractions) Mitral valve prolapse Lumbar disc herniation Hemorrhoids Diverticulosis 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 Ulnar neuropathy Vitamin D deficiency Hypercholesterolemia Surgical History Hx of colonoscopy Cataract extraction status, unspecified eye History of inguinal hernia repair History of vasectomy Family History (Updated 11/16/24 @ 17:15 by CONNOR Buenrostro) Father Hypertension Abdominal aneurysm Mother Lymphoma Maternal Aunt Lymphoma Brother CAD (coronary artery disease) Myocardial infarction Family/Other Hypercholesterolemia History of high blood pressure CAD (coronary artery disease) Social History Housing: House Are you a primary floor care specialist to a significant other at home: No Do you presently have visiting nurse or other home services: No Alcohol intake: current Alcohol intake frequency: 0-2 drinks per day Comment: 2x a week 1-2 drinks -beer Patient Tobacco Use Status: Former Tobacco user Tobacco use type: Cigarette Years Smoked: stopped 1995 e-Cigarette/Vaping Use: Never Used Second Hand Smoke Exposure: No service: No Current occupational status: retired Cognitive needs: No Hearing needs: No Vision needs: No Questionnaire PHQ-9 Over the last 2 weeks, how often have you been bothered by any of the following problems? 1. Little interest or pleasure in doing things: not at all 2. Feeling down, depressed, or hopeless: not at all 3. Trouble falling or staying asleep, or sleeping too much: not at all 4. Feeling tired or having little energy: not at all 5. Poor appetite or overeating: not at all 6. Feeling bad about yourself - or that you are a failure or have let yourself or your family down: not at all 7. Trouble concentrating on things, such as reading the newspaper or watching television: not at all 8. Moving or speaking so slowly that other people could have noticed. Or the opposite - being so fidgety or restless that you have been moving around a lot more than usual: not at all 9. Thoughts that you would be better off or of hurting yourself in some way: not at all Total score: 0 Source: Developed by Drs. Conor Valdez, Ave Foster, Moose Fang and colleagues, with an educational jenn from [employer]. Thrive Questionnaire Date Thrive assessed: 11/14/24 I am a: Patient What is your living situation today?: I have a steady place to live Within the past 12 months, did the food you bought not last and you didn't have the money to get more?: Never true Within the past 12 months, did you worry whether your food would run out before you got money to buy more?: Never true Do you have trouble paying for medicines?: No Do you have trouble getting transportation to medical appointments?: No Do you have trouble paying your heating and electricity bill?: No Do you have trouble taking care of your child, family member or friend?: No Do you have trouble with day-to-day activities such as bathing, preparing meals, shopping, managing finances, etc.?: No Are you currently unemployed and looking for a job?: No Are you interested in more education?: No Please select the resources that you would like help with: None Currently or been in a relationship where the following occur: No concerns reported THRIVE Score: 0 AUDIT C Alcohol Use Questionnaire (AUDIT-C) 1. How often do you have a drink containing alcohol?: 4 or more times a week Total Score: 4 EDWIN-7 AMB Questionnaire EDWIN-7 Date EDWIN - 7 assessed: 05/12/24 Feeling nervous, anxious, or on edge: 0 = Not at all Not being able to stop or control worryin = Not at all Worrying too much about different things: 0 = Not at all Trouble relaxin = Not at all Being so restless that it is hard to sit still: 0 = Not at all Becoming easily annoyed or irritable: 0 = Not at all Feeling afraid as if something awful might happen: 0 = Not at all Total EDWIN-7 score (0-4 normal; 5-9 mild; 10-14 moderate; 15-21 severe): 0 Source: Developed by Drs. Conor Valdez, Ave Foster, Moose Fang and colleagues, with an educational jenn from [employer]. Physical exam (Primary Care) Tobacco/Smoking Status: Tobacco use Status Tobacco use date assessed 04/23/23 11/16/24 17:15 Patient Tobacco Use Status Former Tobacco user 11/16/24 17:15 Tobacco use type Cigarette 11/16/24 17:15 e-Cigarette/Vaping Use Never Used 11/16/24 17:15 PHQ-9: PHQ-9 Score PHQ-9: Total score 0 11/16/24 17:15 Thrive Assessment: Date of Thrive Assessment Date Thrive assessed 11/14/24 11/16/24 17:15 Currently or been in a relationship where the following occur: No concerns reported Const General: alert; No acute distress Eyes Conjunctivae: conjunctivae normal Resp Auscultation: clear to auscultation bilaterally Cardio Rate: regular rate Rhythm: regular rhythm GI Inspection: Yes normal to inspection Extrem General: Yes normal to inspection and No edema Coding Level of Care Code Est Pt Level 4 (58555) Diagnoses Impaired glucose tolerance R73.02 Hypercholesterolemia E78.00 Mitral valve prolapse I34.1 Overweight (BMI 25.0-29.9) E66.3 Fall W19.XXXA Right-sided thoracic back pain M54.6 Foot pain, left M79.672 Assessment & Plan Assessment & Plan (1) Impaired glucose tolerance: Code(s): R73.02 - Impaired glucose tolerance (oral) Category: Medical Plan: Decrease the amount of carbohydrate intake, pasta, bread, rice and potatoes are all sugar and that is aside from all the sweet stuff, remember that fruits are good but they are Sweet also. (2) Hypercholesterolemia: Code(s): E78.00 - Pure hypercholesterolemia, unspecified Category: Medical Plan: Avoid fried foods, chicken skin, eggs, butter margarine, pastries and meat. Be it pork or beef they have a lot of cholesterol LDL goal of less than 130 and triglyceride of less than 150. Patient on simvastatin 20 (3) Mitral valve prolapse: Comment: Sees Dr Cortés echocardiogram June 2024 Code(s): I34.1 - Nonrheumatic mitral (valve) prolapse Category: Medical Plan: Continuing to monitor patient has seen Cardiology advised echocardiogram in 2 years (4) Overweight (BMI 25.0-29.9): Code(s): E66.3 - Overweight Category: Medical Plan: Diet and exercise (5) Fall: Comment: October 2024 Code(s): W19.XXXA - Unspecified fall, initial encounter Category: Medical (6) Right-sided thoracic back pain: Comment: October 2024 Code(s): M54.6 - Pain in thoracic spine Category: Medical (7) Foot pain, left: Code(s): M79.672 - Pain in left foot Category: Medical Plan History of Present Illness The patient is a 69-year-old male presenting for follow-up on chronic low back pain and evaluation of new foot and rib pain. The patient has a history of hypercholesterolemia and is currently on simvastatin therapy, with recent cholesterol levels showing improvement. He also has a history of mitral valve prolapse with mild mitral regurgitation, managed with metoprolol, which has improved his supraventricular tachycardia and premature ventricular contractions. The patient reports chronic low back pain, for which he was previously prescribed prednisone, leading to improvement in symptoms. He is also on low- dose aspirin therapy as part of his cardiovascular management plan. The patient has mild leukopenia, which has been present since 2019, and recent blood work showed stable renal function and normal hemoglobin A1c despite a mildly elevated blood sugar level. His electrolytes and liver function tests are within normal limits. Recently, the patient experienced a fall in the shower, resulting in rib pain without visible bruising, but pain on deep inspiration and coughing. He also reports foot pain, described as a stabbing sensation on the top of the arch, which has improved with the use of orthotics. Preventative care measures include an up-to-date colonoscopy and a recent sh ingles vaccination. Health Maintenance - Colonoscopy is up to date. - Recent shingles vaccination completed. - Cholesterol management with simvastatin, LDL goal of less than 130 mg/dL, current level at 83 mg/dL. - Cardiovascular management includes low-dose aspirin therapy and metoprolol for mitral valve prolapse and arrhythmias. Social History - The patient has implemented the use of orthotics for foot pain management. - Reports a fall in the shower, leading to rib pain, and has since purchased a shower mat for safety. Review of Systems - Cardiovascular: Denies chest pain, reports history of supraventricular tachycardia and premature ventricular contractions. - Respiratory: Reports rib pain on deep inspiration and coughing, denies dyspnea. - Musculoskeletal: Reports chronic low back pain and foot pain, denies other joint pain. - Endocrine: Reports elevated blood sugar, denies symptoms of diabetes. Physical Exam - Musculoskeletal: Circulation in the foot is normal, no pins and needles sensation, tenderness noted on palpation of the foot. Results - Labs: Mild leukopenia noted, stable renal function, normal hemoglobin A1c, elevated blood sugar at 100 mg/dL. - Imaging: Recent echocardiogram showed mild mitral valve prolapse and mild mitral regurgitation. Plan The patient will continue on simvastatin therapy to manage hypercholesterolemia, with a target LDL cholesterol level of less than 130 mg/dL. Metoprolol therapy will be maintained to manage mitral valve prolapse and associated arrhythmias, with a follow-up echocardiogram scheduled in two years. For chronic low back pain, the patient will continue with current management strategies, including the use of orthotics for foot pain, which has shown improvement. An x-ray of the ribs and foot will be conducted to assess for any fractures or arthritis, given the recent fall and persistent foot pain. Preventative care measures include maintaining an up-to-date colonoscopy and considering the RSV vaccine due to COPD, although it is not mandatory. Patient was informed and verbally consented to the use of an ambient scribe for clinic note documentation during this visit. Discussion Notes During the visit, we discussed the management of hypercholesterolemia with simvastatin, aiming for an LDL cholesterol level below 130 mg/dL. We also reviewed the patient's cardiovascular health, including the continuation of metoprolol for mitral valve prolapse and arrhythmias, with a follow-up echocardiogram planned in two years. The patient was advised to continue using orthotics for foot pain management, which has shown improvement, and to undergo x-rays for the ribs and foot to rule out fractures or arthritis. Preventative care discussions included maintaining an up-to-date colonoscopy and considering the RSV vaccine due to COPD, although it is not mandatory. Patient Instructions - Continue taking simvastatin as prescribed to manage cholesterol levels. - Maintain metoprolol therapy for heart health and follow up with cardiology as scheduled. - Use orthotics regularly to alleviate foot pain. - Schedule and complete x-rays for ribs and foot to check for fractures or arthritis. - Keep colonoscopy up to date and consider RSV vaccine if advised. Orders: Orders XR ribs RT min 3V w CXR1V Today M54.6 - Pain in thoracic spine XR foot LT 2V Today M79.672 - Pain in left foot Medications: Discontinued prednisone Discontinued Reason: Change Referral Type 4 tabs QD x 2 days then 3 tabs QD x 2 days then 2 tabs Qd x 2 days then 1 tab QD x 2 days PO daily; 20 tabs 0RF J45.909 - Unspecified asthma, uncomplicated, M54.50 - Low back pain, unspecified
[2024-11-16 17:16] VITALS: BP 116/78; PULSE 82; O2SAT 96; BMI 27.3
== END 2024-11-16 17:38 | disposition home or self-care (01) ==
LOC: HO.HMCH 17:04
PROVIDERS: PCP Internal Medicine; Visit Provider Internal Medicine
DX: R73.02 Impaired glucose tolerance (oral) (principal); E78.00 Pure hypercholesterolemia, unspecified; I34.1 Nonrheumatic mitral (valve) prolapse; E66.3 Overweight; W19.XXXA Unspecified fall, initial encounter; M54.6 Pain in thoracic spine; M79.672 Pain in left foot

== ENCOUNTER → 2024-11-16 17:04 | Outpatient (BNVA) | payer MEDICARE, SELFPAY | PROVIDERS: PCP Internal Medicine; Visit Provider Internal Medicine | DX: R73.02 Impaired glucose tolerance (oral) (principal); E78.00 Pure hypercholesterolemia, unspecified; I34.1 Nonrheumatic mitral (valve) prolapse; E66.3 Overweight; M54.6 Pain in thoracic spine; M79.672 Pain in left foot; Z91.81 History of falling | CPT/HCPCS: 99212 ==

== ENCOUNTER 2024-11-17 09:02 | Outpatient (REF) | payer MEDICARE, SELFPAY ==
--- NOTE | ~2024-11-17 | XR_ITS ---
EXAMINATION: XR FOOT, LEFT CLINICAL INFORMATION: M79.672 - Pain in left foot COMPARISON: 03/11/2020 TECHNIQUE: AP, lateral, and oblique views of the left foot. FINDINGS: A bipartite medial sesamoid of the first metatarsal is again seen. Sesamoids are well aligned. There is narrowing and minimal osteophyte formation involving the first tarsometatarsal joint, slightly increased from the prior. Again seen are small enthesophytes involving calcaneus at the plantar fascia Achilles attachments. 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 Electronically signed by: Tay Fine MD 11/17/2024 09:55 AM EDT
--- NOTE | ~2024-11-17 | XR_ITS ---
EXAMINATION: XR RIBS, RIGHT CLINICAL INFORMATION: M54.6 - Pain in thoracic spine COMPARISON: Chest x-ray 04/12/2022 TECHNIQUE: PA chest x-ray and 3 views of the right ribs were obtained. FINDINGS: Lungs are clear. No consolidation, pneumothorax, or pleural effusion. The cardiomediastinal silhouette and pulmonary vasculature are normal. Osseous structures are unremarkable. Ribs are intact. No fractures are identified. XR/XR ribs RT min 3V w CXR1V IMPRESSION: Unremarkable examination. Electronically signed by: Tay Fine MD 11/17/2024 09:59 AM EDT
--- OUTSIDE RECORDS SUMMARY | 2024-11-17 09:25 | XMS_ITS | Patient Health Record ---
Author Organization [facility] Address [address] [place] [address] Care Team Providers Care Reformatory Attendant Name Role Phone Sanjay Salgado MD Primary Care Provider Ronaldo Garcia Jr Unavailable Reason For Referral No Information Medications Medication SIG (Take, Route, Frequency, Duration) Notes Start Date End Date Status MiraLax (colon prep) 8.3 ounce ((238) grams mixed with Gatorade or Crystal Light orally begin at 5:00 p.m. the day before the procedure for 1 day 05/14/2019 Active Simvastatin 20 MG take 1 tablet by mayra th every evening Oral for 90 Active Aspirin Adult Low Dose 81 MG 1 tablet Orally Once a day for 30 day(s) Active Vitamin B12 1000 MCG 1 tablet Orally Onc e a day for 30 day(s) Active Folic Acid 800 MCG 1 tablet Orally Once a day Active Vitamin D3 50 MCG (2000 UT) 1 tablet Ora lly Once a day Active Immunizations Vaccine Route Administration Date Status Comme nts Influenza Unknown 01/20/2019 Administered Social History Tobacco Use: Social History Observation Description Date Details (start date - stop date) Former Smoker NA - NA Tobacco Use/Smoking Question Answer Notes Patient is a former smoker How long has it been since you last smoked? > 10 years Alcohol Screen Question Answer Notes Did you have a drink contain ing alcohol in the past year? Yes How often did you have a dri nk containing alcohol in the past year? 4 or more times a week (4 points) How many drinks did you have on a typical day when you were drinking in the past year? 1 or 2 drinks (0 point) How often did you have 6 or more drinks on one occasion in the past year? Never (0 point) Points 4 Interpretation Positive Problems Problem Type SNOMED Code ICD Code Onset Dates Problem Status W/U Status Risk Notes Problem 100028440 Colon cancer screening (Z12.11) Active confirmed Problem 025880274 Encounter for other preprocedural examination (Z01.818) Active confirmed Problem 112742356 Long-term use of aspirin therapy (Z79.82) Active confirmed Plan Of Treatment Future Test Test Name Order Date COLONOSCOPY 05/14/2019 Insurance Providers Payer Name Payer Address Payer Phone Subscriber Number Group Number Insured Name Patient Relationship to Insured Coverage Start Date Coverage End Date [employer] [place] [address] [address] [place] [address] [id number] HENRIQUE ARREDONDO Self - patient is the insured Medical (General) History Medical History History ICD Code mitral valve prolapse palpitations elevated Cholesterol Surgical History Surgery Date(Month/Year) hernia repair inguinal 2019 hernia repair inguinal 2017 [facility] -DR. POZO
--- OUTSIDE RECORDS SUMMARY | 2024-11-17 09:25 | XMS_ITS | Patient Health Record ---
Author Organization [facility] Address [address] [place] [address] Care Team Providers Care Neurodiagnostic Technician Name Role Phone Kevin Newton MD Primary Care Provider Rogerio Kraus Unavailable [phone] Reason For Referral No Information Medications Medication [...] Status W/U Status Risk Notes Problem Bursitis (59863980) Bursitis (727.3) Active confirmed Problem Myositis (29346581) Myositis (729.1) Active confirmed Problem Pain in limb (83951982) Pain in Limb (729.5) Active confirmed Problem Plantar fasciitis (131855595) Plantar Fasciitis (728.71) Active confirmed Problem Calcaneal spur (22239402) Calcaneal spur (726.73) Active confirmed Plan Of Treatment No Information Insurance Providers Payer Name Payer Address Payer Phone Subscriber Number Group Number Insured Name Patient Relationship to Insured Coverage Start Date Coverage End Date [facility] [address] [place] [id number] [place] Self - patient is the insured Medical (General) History Medical History History ICD Code Back,Hip,and Knee pain Headaches Migraines Measles Chicken pox
--- OUTSIDE RECORDS SUMMARY | 2024-11-17 09:25 | XMS_ITS | Clinical Summary ---
Author Organization [employer] [facility] Address [address] [place] [address] Care Team Providers Care Machinist Wood Name Role Phone Sanjay Salgado MD Primary Care Provider [phone] Social History Tobacco Use Types Packs/Day Years [...] age to complete this topic Care Teams Machinist Wood Relationship Specialty Start Date End Date Sanjay Salgado MD [address] [place] [address] [address] [facility] [place] [address] PCP - General Internal Medicine 06/20/20
== END 2024-11-17 09:03 | disposition home or self-care (01) ==
LOC: HO.XRAY 09:02
PROVIDERS: PCP Internal Medicine; Visit Provider Internal Medicine
DX: M79.672 Pain in left foot (principal); M54.6 Pain in thoracic spine; M19.072 Primary osteoarthritis, left ankle and foot
CPT/HCPCS: 71101; 73620

== ENCOUNTER → 2024-11-17 09:04 | Outpatient (BNV) | payer MEDICARE, SELFPAY | PROVIDERS: PCP Internal Medicine; Visit Provider Radiology Diagnostic Radiology | DX: M54.6 Pain in thoracic spine (principal); M19.072 Primary osteoarthritis, left ankle and foot | CPT/HCPCS: 71101; 73620 ==